=== PATIENT | male | born 1940 | race Caucasian/White ===

== ENCOUNTER 2016-06-01 08:24 | Outpatient (CLI) | payer MEDICARE, BC ==
[~2016-06-01] VITALS: Ht 203.2 cm; Wt 95.5 kg
--- NOTE | ~2016-06-01 | HEMODYNAMI ---
PATIENT:ARMANDO CURRY MEDICAL RECORD: [id number] : 36 LOCATION:[facility] ADMISSION DATE: 06/01/16 Generatedon:06/01/201611:03 Patient name: ARMANDO CURRY Patient #: [id number] SSN: [id number] : 1940 Date of study: 06/01/2016 Page: Of Hemodynamic Procedure Report Patient Data Patient Demographics Procedure consent was obtained First Name: ARMANDO Gender: Male Last Name: ANTOINETTE : 1940 [facility] Initial: R Age: 75 year(s) Patient #: [id number] Race: SSN: [id number] Additional ID: [id number] Contact details Address: [address] [address] State: [place] City: [place] Zip code: [address] Past Medical History History of disease Date Diagnosis Comments CAD Allergies: No known allergies Admission Admission Data Admission Date: 06/01/2016 Admission Time: 8:24 Arrival Date: 06/01/2016 Arrival Time: 10:30 Admit Source: Other Insurance Payor: Medicare Height (in.): 70 BSA: 2.18 (m2) Height (cm.): 177.8 BMI: 31.71 (kg/m2) Weight (lbs.): 221 Weight (kg.): 100.24 Lab Results Lab Result Date: 06/01/2016 Lab Result Time: 0:00 Biochemistry Name Units Result Min Max BUN mg/dl 15 --(--*-)-- 7 18 Creatinine mg/dl 0.9 --(-*--)-- 0.6 1.3 CBC Name Units Result Min Max Hemoglobin g/dl 11.8 *-(----)-- 13.5 17.5 Procedure Procedure Types Cath Procedure Diagnostic Procedure Cardioversion Procedure Description Procedure Date Procedure Date: 06/01/2016 Procedure Start Time: 10:48 Procedure End Time: 11:02 Procedure Staff Name Function Reynold Vital RT Electric Mule Operator Jennifer Dawson RT Scrub Elvin Gunn RT Monitor Manohar Ferrara MD Performing Physician Suzy Perez RN Nurse Procedure Data Cath Procedure Fluoroscopy Diagnostic fluoroscopy Total fluoroscopy Time: 0 time: 0 min min Diagnostic fluoroscopy Total fluoroscopy dose: 0 dose: 0 mGy mGy Contrast Material Contrast Material Type Amount (ml) Isovue 370 0 Estimated blood loss: 5 ml Procedure Complications No complications Procedure Medications Medication Administration Route Dosage Oxygen NC 2 l/min Refer to Anesthesia Notes for Sedation Medications Hemodynamics Rest BSA: 2.18 (m2) HGB: 11.8 (g/dl) O2 Consumption: Estimated: 296.48 (ml/min) O2 Consumption indexed: Estimated:136 (ml/min/m) Pre Cath Intra NCS Post Cath Vital Signs Time Heart Resp SPO2 NIBP (mmHg) Rhythm Pain Sedation Rate (ipm) (%) Status Level (bpm) 10:43:57 88 16 96 138/107(123) A-Fib 0 (11) 10(A) , No pain 10:48:37 98 18 97 101/74(90) NSR 0 (11) 6(A) , No pain 10:53:45 84 18 98 111/73(90) NSR 0 (11) 6(A) , No pain 11:01:03 69 18 99 107/75(94) NSR 0 (11) 9(A) , No pain Medications Time Medication Route Dose Verified Delivered Reason Notes Effectiven ess by by 10:35:48 Oxygen NC 2 Manohar Almonte Per l/min Alem Perez RN physician 10:44:22 Refer to Manohar [place]la for Anesthesia Alem Ferrara MD sedation Notes for Sedation Medications Procedure Log Time Note 10:31:44 Zero performed for pressure channel P1 10:32:28 ACC Patient presents with No angina; no symptoms CCS Anginal Class 1--Ordinary physical activity does not cause angina, angina occurs with strenuos, rapid, or prolonged activity.. 10:32:31 Diagnostic Cath status Elective 10:32:33 Reynold Vital RT(R) sent for patient. Start room use. 10:32:34 Time tracking: Regular hours 10:32:46 Plan of Care:Hemodynamics will remain stable., Cardiac rhythm will remain stable., Comfort level will be maintained., Respiratory function will remain adequate., Patient/ family verbilizes understanding of procedure., Procedure tolerated without complication., Recovers from procedure without complications.. 10:32:55 Patient received from Post Procedure Room to CCL 1 Alert and oriented. Tansferred to table in Supine position. 10:32:56 Warm blankets applied, and raven hugger turned on for patient comfort. 10:32:57 Correct patient and procedure confirmed by team. 10:32:58 Signed procedure consent form obtained from patient. 10:32:59 ECG and BP/O2 sat monitors applied to patient. 10:35:48 Oxygen 2 l/min NC was given by Suzy Perez RN; Per physician; 10:36:14 Arrival Date: 06/01/2016 10:30:00 AM 10:36:19 Admit Source: Other 10:36:26 Insurance Payor : Medicare 10:36:31 Patient Height : 177.8 cm 10:36:33 Patient Weight : 100.24 kg 10:38:38 Lab Result : Hemoglobin 11.8 g/dl 10:38:38 Lab Result : Creatinine 0.9 mg/dl 10:38:38 Lab Result : BUN 15 mg/dl 10:42:48 Vital chart was started 10:43:00 Dr Cano present and monitoring patient for TIVA. 10:43:03 Quick combo pads placed on patients chest and back. 10:43:05 Defibrillator synced and charged to 200 Joules. 10:43:16 Full Disclosure recording started 10:43:30 H&P Date Dictated: 05/27/2016 Within 30 days and on chart., H&P Addendum completed by physician on day of procedure. (MUST COMPLETE FOR ALL OUTPATIENTS). 10:43:31 Pre-procedure instructions explained to patient. 10:43:32 Pre-op teaching completed and patient verbalized understanding. 10:43:33 Family in waiting room. 10:43:34 Patient NPO since Midnight. 10:43:39 Is the patient allergic to Iodine/contrast media? No. 10:43:40 Was the patient premedicated? No 10:43:42 Is patient on blood thinner?Yes 10:43:45 ACC The patient was administered the following blood thiners within the last 24 hours: Eliquis 10:43:57 Patient diabetic? Yes. 10:44:04 If diabetic: On Metformin? Yes 10:44:06 If on Metformin: Last Dose? 06/01/2016 10:44:10 Previous problem with sedation/anesthesia? No ? 10:44:11 Snore? Yes 10:44:12 Sleep apnea? Yes 10:44:13 Deviated septum? No 10:44:14 Opens mouth fully? Yes 10:44:15 Sticks out tongue? Yes 10:44:17 Airway obstruction? No ? 10:44:22 Refer to Anesthesia Notes for Sedation Medications was given by Manohar Ferrara MD; for sedation; 10:44:25 Dentures? Yes in tight 10:44:29 Pre procedure: right dorsailis pedis pulse 1+ Palpable, but thready & weak; easily obliterated 10:44:30 Patient pain scale 0/10 ?. 10:44:35 IV patent on arrival in left hand with 0.9% NaCl at KVO. 10:44:39 Lab results completed and on chart. 10:44:44 Alarms reviewed by R. N. 10:44:44 Mid Chest area was prepped with chlora-prep and draped in sterile fashion 10:44:45 Sharps counted by scrub and verified by R.N. 10:44:46 --------ALL STOP TIME OUT------ 10:44:46 Physician arrived 10:44:47 Final Timeout: patient, procedure, and site verified with staff and physician. All members of the team are in agreement. 10:44:54 Physical assessment completed. ASA score P 2 - A patient with mild systemic disease as per Manohar Ferrara MD. 10:44:57 Sedation plan: TIVA Propofol 10:47:22 Quick Combo opened to sterile field. 10:47:29 Defibrillator synced and charged to 300 Joules. 10:47:30 Procedure started. 10:47:37 Shock delivered. 10:47:48 Patient cardioverted to sinus rhythm . 10:48:55 Procedure ended.(Physican Out) 10:49:14 Fluoroscopy time 00.00 minutes. 10:49:16 Fluoroscopy dose: 0 mGy 10:49:16 Flurop Dose total: 0 10:49:26 Contrast amount:Isovue 370 0ml. 10:49:32 Sharps counted by scrub and verified by R.N. 10:49:39 Post procedure rhythm: sinus rhythm 10:49:50 Estimated blood loss: 5 ml 10:49:53 Patient needs reinforcement of post procedure teaching. 10:49:53 Post procedure instruction explained to patient.Patient verbalizes understanding. 10:50:02 Procedure and supply charges have been captured, reviewed, submitted and are correct. 10:50:07 Procedure Complication : No complications 10:50:09 See physician's report for complete and final results. 10:50:09 Vital chart was stopped 10:50:13 Report given to Post Procedure Room. 10:50:16 Patient transfered to Post Procedure Room with Stretcher. 11:02:01 Full Disclosure recording stopped 11:02:01 Procedure ended. 11:02:06 End room use (Document Last) Device Usage Item Manufacture Quantity Catalog Hospital Part Current Minimal Lot# / Name Number Charge Number Stock Stock Jessica al# Code [employer] [id number] Combo Signature Audit [place] Stage Time Signature Unsigned Intra-Procedure 06/01/2016 Jennifer Dawson 11:03:40 AM RT(R) Signatures Monitor : Elvin Gunn RT Signature : Date : Time : [address] [address]
[~2016-06-01 08:24] MED LIST: ALBUTEROL2.5 MG/3 M INH; BAYER CHEWABLE81 MG PO; BETAPACE 80 MG80 MG PO; GLUCOPHAGE500 MG PO; LIPITOR80 MG PO; LISINOPRIL5 MG PO; MELOXICAM PO; PLAVIX75 MG PO; PREDNISONE10 MG PO; SINGULAIR10 MG PO; TOPROL XL25 MG PO; TOPROL XL50 MG PO; VIBRAMYCIN 100100 MG PO
[2016-06-01 09:22] LABS: BASOPHILS 0.5 % (0.0-2.0); EOSINOPHILS 1.9 % (0-7); HEMATOCRIT 37.3 % (42.0-54.0); HEMOGLOBIN 11.8 g/dL (13.5-17.5); IMMATURE GRANULOCYTES 0.4 % (0-5); LYMPHOCYTES 16.7 % (15-50); MCH 31.2 pg (26.0-34.0); MCHC 31.6 g/dL (31.0-37.0); MCV 98.7 fL (80.0-100.0); MEAN PLATELET VOLUME 9.5 fL (7.4-10.4); MONOCYTES 10.9 % (2-11); NEUTROPHILS 69.6 % (40-80); RBC 3.78 10x6/uL (4.20-6.10); RDW 15.2 % (11.5-14.5); WBC 7.5 10x3/uL (4.8-10.8)
[2016-06-01 09:23] LABS: PLATELET COUNT 187 10x3/uL (130-400)
[2016-06-01] MEDS ORDERED: ELIQUIS2.5 MG PO (09:26)
[2016-06-01 09:34] VITALS: BP 142/83; Ht 203.2 cm; Wt 95.5 kg
[2016-06-01 09:38] LABS: INR 1.69 (0.85-1.17); PROTIME 19.9 SECONDS (11.6-15.0)
[2016-06-01 09:39] LABS: CALC OSMOLALITY 278 mosm/kg (275-300); CALCIUM 8.8 mg/dL (8.5-10.1); CARBON DIOXIDE 28.2 mmol/L (21.0-32.0); CHLORIDE - SERUM 106 mmol/L (98-107); CREATININE - SERUM 0.9 mg/dL (0.6-1.3); GLUCOSE 85 mg/dL (74-106); POTASSIUM - SERUM 3.8 mmol/L (3.5-5.1); SODIUM 140 mmol/L (136-145); UREA NITROGEN 15 mg/dL (7-18); eGFR NON AFRICAN AMERICAN 87 mL/min (90-120)
--- NOTE | 2016-06-01 11:23 | NUR ---
1115 HOB ELEVATED, AWAKE AND TALKING WITH FAMILY AT BEDSIDE. SIPPING SODA AND EATING TURKEY SANDWICH. REMAINS NSR W PVC'S RATE 85.
--- NOTE | 2016-06-01 11:48 | NUR ---
1145 SITTING UP IN BED, ROOM AIR. NSR RATE 82 W PAC/PVC. FAMILY AT SIDE. DENIES NEEDS AT THIS TIME.
--- NOTE | 2016-06-01 13:00 | NUR ---
PIV REMOVED FROM LEFT FORARM WITH BANDAID APPLIED. UP TO BEDSIDE...AMBULATED TO BATHROOM TO VOID. BACK TO BEDSIDE TO DRESS WITH ASSIST FROM .
--- NOTE | 2016-06-01 13:08 | NUR ---
D/C INSTRUCTIONS DISCUSSED WITH PATIENT AND AT BEDSIDE. BOTH VERBALIZED UNDERSTANDING. WHEELED DOWN VIA WHEELCHAIR BY BIT SETTER TEAM.
--- NOTE | 2016-06-04 11:11 | OP ---
PATIENT NAME: ARMANDO CURRY MEDICAL RECORD: [id number] :36 LOCATION:D.CAT ADMISSION DATE: SURGEON: WAYNE NEGRETE MD DATE OF OPERATION: 06/01/2016 PROCEDURE: DC cardioversion. INDICATION: Atrial fibrillation. PROCEDURE INDETAIL: IV conscious sedation was performed per anesthesia. Continuous heart rate, O2 saturation, blood pressure monitoring all undertaken, all of which remains stable. He received 1 shock restoring sinus rhythm. OVERALL IMPRESSION: Successful DC cardioversion from atrial fibrillation to sinus rhythm. TRANSINT:[id number] Voice Confirmation ID: [id number] DOCUMENT ID: [id number] WAYNE NEGRETE MD at 1111 CC: [id number] DICTATION DATE: 06/01/16 1048 MAST MAKER: 06/01/16 1059 DEP CLI 06/01/16 [id number] [place] [address]
== END 2016-06-01 13:09 | disposition home or self-care (01) ==
LOC: D.CATH 08:24
PROVIDERS: Internal Medicine Interventional Cardiology
DX: I48.91 Unspecified atrial fibrillation (principal)

== ENCOUNTER 2016-07-28 09:43 | Outpatient (CLI) | payer MEDICARE, BC ==
[~2016-07-28] VITALS: Ht 177.8 cm; Wt 100.0 kg
--- NOTE | ~2016-07-28 | HEMODYNAMI ---
PATIENT:ARMANDO CURRY MEDICAL RECORD: [id number] : 36 LOCATION:[facility] ADMISSION DATE: 07/28/16 Generatedon:07/28/201612:12 Patient name: ARMANDO CURRY Patient #: [id number] SSN: [id number] : 1940 Date of study: 07/28/2016 Page: Of Hemodynamic Procedure Report Patient Data Patient Demographics Procedure consent was obtained First Name: ARMANDO Gender: Male Last Name: ANTOINETTE : 1940 [facility] Initial: R Age: 75 year(s) Patient #: [id number] Race: SSN: [id number] Additional ID: [id number] Contact details Address: [address] [address] State: [place] City: [place] Zip code: [address] Past Medical History History of disease Date Diagnosis Comments CAD Allergies: No known allergies Admission Admission Data Admission Date: 07/28/2016 Admission Time: 9:43 Lab Results Lab Result Date: 07/28/2016 Lab Result Time: 0:00 CBC Name Units Result Min Max Hemoglobin g/dl 12 *-(----)-- 13.5 17.5 Procedure Procedure Types Cath Procedure Diagnostic Procedure Cardioversion Procedure Description Procedure Date Procedure Date: 07/28/2016 Procedure Start Time: 12:04 Procedure End Time: 12:09 Procedure Staff Name Function Manohar Ferrara MD Performing Physician Jennifer Dawson RT Senior Private Client Advisor Amelia Roy RN Nurse Elvin Gunn RT Monitor Procedure Data Cath Procedure Fluoroscopy Diagnostic fluoroscopy Total fluoroscopy Time: 0 time: 0 min min Diagnostic fluoroscopy Total fluoroscopy dose: 0 dose: 0 mGy mGy Contrast Material Contrast Material Type Amount (ml) Isovue 300 0 Procedure Complications No complications Hemodynamics Rest HGB: 12 (g/dl) Heart Rate: 0 (bpm) Snapshots Pre Cath Intra NCS Post Cath Vital Signs Time Heart Resp SPO2 NIBP (mmHg) Rhythm Pain Sedation Rate (ipm) (%) Status Level (bpm) 11:53:28 61 17 94 161/86(128) NSR 0 (11) 10(A) , No pain 11:57:53 61 16 98 146/84(127) NSR 0 (11) 10(A) , No pain 12:02:17 60 19 98 148/77(130) NSR 0 (11) 10(A) , No pain 12:06:33 84 21 81 112/65(89) NSR 0 (11) 10(A) , No pain Procedure Log Time Note 11:30:01 Elvin Gunn RT(R) sent for patient. Start room use. 11:30:56 ACC Patient presents with Non-STEMI CCS Anginal Class 2--Slight limitation of ordinary activity. 11:31:00 Diagnostic Cath status Elective 11:31:10 Time tracking: Regular hours 11:31:14 Plan of Care:Hemodynamics will remain stable., Cardiac rhythm will remain stable., Comfort level will be maintained., Respiratory function will remain adequate., Patient/ family verbilizes understanding of procedure., Procedure tolerated without complication., Recovers from procedure without complications.. 11:50:58 Zero performed for pressure channel P1 11:51:08 Zero performed for pressure channel P1 11:52:07 Patient received from Pre/Post Procedure Room to [facility] 3 Alert and oriented. Tansferred to table in Supine position. 11:52:08 Warm blankets applied, and raven hugger turned on for patient comfort. 11:52:08 Correct patient and procedure confirmed by team. 11:52:09 Signed procedure consent form obtained from patient. 11:52:10 ECG and BP/O2 sat monitors applied to patient. 11:52:10 Vital chart was started 11:52:11 Baseline sample Acquired. 11:52:17 Rhythm: atrial fibrillation 11:52:18 Full Disclosure recording started 11:56:45 H&P Date Dictated: 07/26/2016 Within 30 days and on chart., H&P Addendum completed by physician on day of procedure. (MUST COMPLETE FOR ALL OUTPATIENTS). 11:56:47 Pre-procedure instructions explained to patient. 11:56:47 Pre-op teaching completed and patient verbalized understanding. 11:56:49 Family in waiting room. 11:56:51 Patient NPO since Midnight. 11:57:03 Patient allergic to No known allergies 11:57:05 Is the patient allergic to Iodine/contrast media? No. 11:57:10 Is patient on blood thinner?Yes 11:57:26 ACC The patient was administered the following blood thiners within the last 24 hours: Eliquis 11:57:28 Patient diabetic? Yes. 11:57:33 ----Pre-sedation anethsthesia assessment.---- 11:57:35 Previous problem with sedation/anesthesia? No ? 11:57:36 Snore? Yes 11:57:38 Sleep apnea? Yes 11:57:39 Deviated septum? No 11:57:41 Opens mouth fully? Yes 11:57:43 Sticks out tongue? Yes 11:57:45 Airway obstruction? No ? 11:57:47 Dentures? No ? 11:58:46 IV patent on arrival in left hand with 0.9% NaCl at 10ml/hr. 11:59:07 Lab Result : Hemoglobin 12 g/dl 11:59:09 Lab results completed and on chart. 11:59:18 Alarms reviewed by R. N. 11:59:19 Sharps counted by scrub and verified by RKyawN. 11:59:38 DR. PEGUERO present and monitoring patient for TIVA. 11:59:41 Quick combo pads placed on patients chest and back. 12:00:19 Quick Combo opened to sterile field. 12:01:21 Baseline sample Acquired. 12:04:30 --------ALL STOP TIME OUT------ 12:04:31 Final Timeout: patient, procedure, and site verified with staff and physician. All members of the team are in agreement. 12:04:33 Mid Chest site verified by team. 12:04:36 Physical assessment completed. ASA score P 2 - A patient with mild systemic disease as per Manohar Ferrara MD. 12:04:40 Sedation plan: TIVA Propofol 12:04:53 Procedure started. 12:05:02 ------Cardioversion------ 12:05:09 Defibrillator synced and charged to 300 Joules. 12:05:16 Shock delivered. 12:06:25 Patient cardioverted to sinus rhythm . 12:06:32 Procedure ended.(Physican Out) 12:06:58 Fluoroscopy time 00.00 minutes. 12:07:00 Flurop Dose total: 0 12:07:00 Fluoroscopy dose: 0 mGy 12:07:02 Contrast amount:Isovue 300 0ml. 12:07:03 Sharps counted by scrub and verified by R.N. 12:07:03 Insertion/operative site no bleeding no hematoma. 12:07:12 Post procedure rhythm: sinus rhythm 12:07:13 Post procedure instruction explained to patient.Patient verbalizes understanding. 12:07:14 Procedure and supply charges have been captured, reviewed, submitted and are correct. 12:07:30 Procedure Complication : No complications 12:08:18 Vital chart was stopped 12:08:18 See physician's report for complete and final results. 12:08:20 Report given to Pre/Post Procedure Room. 12:09:01 Patient transfered to Pre/Post Procedure Room with Bed. 12:09:04 Procedure ended. 12:09:04 Full Disclosure recording stopped 12:09:11 End room use (Document Last) Device Usage Item Manufacture Quantity Catalog Hospital Part Current Minimal Lot# / Name Number Charge Number [facility]# Code [facility] [employer] [id number] Combo Signature Audit [place] Stage Time Signature Unsigned Intra-Procedure 07/28/2016 Elvin Gunn 12:12:46 PM RT(R) Signatures Monitor : Elvin Gunn RT Signature : Date : Time : [id number] [place] [address]
[~2016-07-28 09:43] MED LIST changes: +ELIQUIS2.5 MG PO
[2016-07-28 10:20] VITALS: BP 157/78; Ht 177.8 cm; Wt 100.0 kg
[2016-07-28 11:00] LABS: BASOPHILS 0.2 % (0.0-2.0); EOSINOPHILS 0.6 % (0-7); HEMATOCRIT 38.9 % (42.0-54.0); IMMATURE GRANULOCYTES 0.4 % (0-5); LYMPHOCYTES 12.2 % (15-50); MCH 31.2 pg (26.0-34.0); MCHC 30.8 g/dL (31.0-37.0); NEUTROPHILS 74.6 % (40-80); PLATELET COUNT 206 10x3/uL (130-400); RBC 3.85 10x6/uL (4.20-6.10); RDW 14.8 % (11.5-14.5); WBC 8.5 10x3/uL (4.8-10.8)
[2016-07-28 11:08] LABS: INR 1.74 (0.85-1.17); PROTIME 20.3 SECONDS (11.6-15.0)
[2016-07-28 11:12] LABS: CALC OSMOLALITY 282 mosm/kg (275-300); CALCIUM 8.9 mg/dL (8.5-10.1); CARBON DIOXIDE 34.6 mmol/L (21.0-32.0); CHLORIDE - SERUM 103 mmol/L (98-107); CREATININE - SERUM 0.9 mg/dL (0.6-1.3); GLUCOSE 92 mg/dL (74-106); SODIUM 141 mmol/L (136-145); UREA NITROGEN 17 mg/dL (7-18); eGFR NON AFRICAN AMERICAN 87 mL/min (90-120)
[2016-07-28 11:14] LABS: POTASSIUM - SERUM 4.6 mmol/L (3.5-5.1)
--- NOTE | 2016-07-28 12:31 | NUR ---
1220 RECEIVED PT FROM PERSONAL LINES ACCOUNT EXECUTIVE. PT IS DROWSY. DENIES ANY C/O PAIN OR NAUSEA. CARDIOVERSION PAD SITES WITH SLIGHT REDNESS. PT DENIES PAIN AT SITES. FAMILY AT BEDSIDE. PO FLUIDS AND SANDWICH SERVED. CALL LIGHT IN REACH.
--- NOTE | 2016-07-28 12:59 | NUR ---
1235 PT DENEIS ANY C/O. RR EVEN AND UNLABORED, TOLERATING SANDWICH WITH NO C/O. FAMILY AT BEDSIDE. CALL LIGHT IN REACH.
--- NOTE | 2016-07-28 13:11 | NUR ---
PIV REMOVED FROM LEFT ARM WITH DRESSING APPLIED. CHEST PAIN IS DENIED PATIENT UP TO GET DRESSED FOR DISCHARGE HOME
--- NOTE | 2016-07-28 13:20 | NUR ---
2690 DISCHARGE INSTURCTIONS GONE OVER WITH PATIENT AND BOTH VERBALIZED UNDERSTANDING LEFT VIA WC TO PARKING FOR TRANSPORT HOME
--- NOTE | 2016-08-02 10:08 | OP ---
PATIENT NAME: ARMANDO CURRY MEDICAL RECORD: [id number] :36 LOCATION:D.CAT ADMISSION DATE: SURGEON: WAYNE NEGRETE MD DATE OF OPERATION: 07/28/2016 PROCEDURE: DC Cardioversion. INDICATION: Atrial fibrillation. DESCRIPTION OF PROCEDURE: IV conscious sedation was performed per anesthesia. Continuous heart rate and O2 saturation monitoring were all undertaken, all of which remains stable. He received 1 shock synchronized at 300 joules restoring sinus rhythm. OVERALL IMPRESSION: Successful DC cardioversion from atrial fibrillation to sinus rhythm. TRANSINT:[id number] Voice Confirmation ID: [id number] DOCUMENT ID: [id number] WAYNE NEGRETE MD at 1008 CC: [id number] DICTATION DATE: 07/28/16 120 [employer] L[employer] OFFICER: 07/28/162027 DEP CLI 07/28/16 [id number] [place] [address]
== END 2016-07-28 13:57 | disposition home or self-care (01) ==
LOC: D.CATH 09:43
PROVIDERS: Internal Medicine Interventional Cardiology
DX: I48.91 Unspecified atrial fibrillation (principal)

== ENCOUNTER 2016-12-10 09:57 | Outpatient (CLI) | payer MEDICARE, BC ==
[~2016-12-10] VITALS: Ht 175.3 cm; Wt 93.2 kg
--- NOTE | ~2016-12-10 | HEMODYNAMI ---
PATIENT:AMRANDO CURRY MEDICAL RECORD: [id number] : 36 LOCATION:[facility] ADMISSION DATE: 12/10/16 Generatedon:12/10/201613:27 Patient name: ARMANDO CURRY Patient #: [id number] SSN: [id number] : 1940 Date of study: 12/10/2016 Page: Of Hemodynamic Procedure Report Patient Data Patient Demographics Procedure consent was obtained First Name: ARMANDO Gender: Male Last Name: ANTOINETTE : 1940 [facility] Initial: R Age: 76 year(s) Patient #: [id number] Race: SSN: [id number] Additional ID: [id number] Contact details Address: [place] [address] State: [place] City: [place] Zip code: [address] Past Medical History History of disease Date Diagnosis Comments CAD Allergies: No known allergies Admission Admission Data Admission Date: 12/10/2016 Admission Time: 9:57 Procedure Procedure Types Cath Procedure Diagnostic Procedure LHC LHC w/Coronaries w/Grafts Cardioversion Procedure Description Procedure Date Procedure Date: 12/10/2016 Procedure Start Time: 13:04 Procedure Staff Name Function Manohar Ferrara MD Performing Physician Elvin Gunn RT Scrub Champ Clifford RN Nurse Ron Orlando RT Monitor Cleve Cortes MD Additional personnel Procedure Data Cath Procedure Fluoroscopy Diagnostic fluoroscopy Total fluoroscopy Time: 3.8 time: 3.8 min min Diagnostic fluoroscopy Total fluoroscopy dose: dose: 277.67 mGy 277.67 mGy Contrast Material Contrast Material Type Amount (ml) Isovue 300 73 Entry Location Entry Primary Successful Side Size Upsize Upsize Entry Closure Succes sful Closure Location (Fr) 1 (Fr) 2 (Fr) Remarks Device Remarks Femoral Right 5 Fr Exoseal artery Diagnostic catheters Device Type Used For End Catheter Placement Cordis 5Fr Pigtail LV Angiography Catheter (MP) Cordis 5Fr JL 4.0 Left Coronary Catheter (MP) Angiography Cordis 5Fr 3DRC Catheter Right Coronary (MP) Angiography Diagnostic Infinity 5Fr SVG Angiography AR MOD Catheter Procedure Medications Medication Administration Route Dosage Oxygen NC l/min Heparin Flush Bag added to field 2 bags (1000units/500ml NS) 0.9% NaCl I.V. 100 ml/hr Refer to Anesthesia Notes for Sedation Medications Hemodynamics Rest Heart Rate: 61 (bpm) Snapshots Pre Cath Intra NCS Post Cath Vital Signs Time Heart Resp SPO2 NIBP (mmHg) Rhythm Pain Sedation Rate (ipm) (%) Status Level (bpm) 12:49:02 68 16 99 168/88(134) NSR 0 (11) 10(A) , No pain 12:53:28 60 18 100 166/88(104) NSR 0 (11) 10(A) , No pain 12:57:55 58 24 96 163/86(148) NSR 0 (11) 10(A) , No pain 13:02:13 58 19 95 130/83(97) NSR 0 (11) 9(A) , No pain 13:06:27 81 21 93 119/80(111) NSR 0 (11) 9(A) , No pain 13:10:35 80 19 93 126/83(97) NSR 0 (11) 9(A) , No pain 13:14:47 79 18 95 129/79(96) NSR 0 (11) 9(A) , No pain 13:18:56 83 18 98 142/87(121) NSR 0 (11) 9(A) , No pain 13:23:10 115 17 96 140/88(111) NSR 0 (11) 9(A) , No pain Medications Time Medication Route Dose Verified Delivered Reason Notes Effec tiveness by by 12:54:47 Oxygen NC l/min Champ Oakes Per Darrin Clifford RN physician RN 12:55:01 Heparin Flush added 2 Champ Oakes used for Bag to bags Darrin Clifford RN procedure (1000units/500ml field RN NS) 12:55:15 0.9% NaCl I.V. 100 Champ Oakes Per ml/hr Darrin Clifford RN physician RN 12:55:33 Refer to Champ Oakes for Anesthesia Notes Darrin Clifford RN sedation for Sedation RN Medications Procedure Log Time Note 12:25:37 Champ Clifford RN sent for patient. Start room use. 12:31:33 ACC Patient presents with Stable Angina CCS Anginal Class 2--Slight limitation of ordinary activity. 12:31:35 Diagnostic Cath status Elective 12:31:38 Time tracking: Regular hours 12:31:42 Plan of Care:Hemodynamics will remain stable., Cardiac rhythm will remain stable., Comfort level will be maintained., Respiratory function will remain adequate., Patient/ family verbilizes understanding of procedure., Procedure tolerated without complication., Recovers from procedure without complications.. 12:39:07 Patient received from Pre/Post Procedure Room to [facility] 3 Alert and oriented. Tansferred to table in Supine position. 12:39:09 Warm blankets applied, and raven hugger turned on for patient comfort. 12:39:10 Correct patient and procedure confirmed by team. 12:39:13 Signed procedure consent form obtained from patient. 12:39:19 Full Disclosure recording started 12:39:20 - 12:39:26 H&P Date Dictated: 12/10/2016 H&P Addendum completed by physician on day of procedure. (MUST COMPLETE FOR ALL OUTPATIENTS). 12:39:46 Pre-procedure instructions explained to patient. 12:39:46 Pre-op teaching completed and patient verbalized understanding. 12:39:48 Family in waiting room. 12:39:50 Patient NPO since Midnight. 12:39:57 Use device set Femoral Dx 12:39:58 Acist Syringe opened to sterile field. 12:39:59 Bag Decanter opened to sterile field. 12:39:59 Medline Cath Pack opened to sterile field. 12:39:59 Terumo 5Fr [place] Sheath opened to sterile field. 12:40:00 St Adolfo 260cm J .035 wire opened to sterile field. 12:40:01 Acist Hand Control opened to sterile field. 12:40:02 Acist Manifold opened to sterile field. 12:40:02 Diagnostic Infinity 5Fr Multipack catheter opened to sterile field. 12:40:03 Tegaderm 4 x 4 opened to sterile field. 12:40:18 Is the patient allergic to Iodine/contrast media? No. 12:44:14 Quick Combo opened to sterile field. 12:45:23 present and monitoring patient for TIVA. 12:46:02 Quick combo pads placed on patients chest and back. 12:46:26 Is patient on blood thinner?No 12:46:28 Patient diabetic? Yes. 12:46:29 If diabetic: On Metformin? Yes 12:46:33 If on Metformin: Last Dose? 12/08/2016 12:46:35 - 12:46:35 ----Pre-sedation anethsthesia assessment.---- 12:46:38 Previous problem with sedation/anesthesia? No ? 12:46:39 Snore? Yes 12:46:40 Sleep apnea? No 12:46:41 Deviated septum? No 12:46:52 Opens mouth fully? Yes 12:46:53 Sticks out tongue? Yes 12:46:55 Airway obstruction? No ? 12:47:01 - 12:47:04 Pre procedure: right dorsailis pedis pulse Doppler 12:47:11 Patient pain scale 0/10 no pain. 12:47:16 ECG and BP/O2 sat monitors applied to patient. 12:47:17 Vital chart was started 12:47:18 Baseline sample Acquired. 12:47:26 Rhythm: atrial flutter 12:47:33 Sharps counted by scrub and verified by R.N. 12:47:33 Alarms reviewed by R. NKyaw 12:47:42 Right groin area was prepped with chlora-prep and draped in sterile fashion 12:47:46 IV patent on arrival in left forearm with 0.9% NaCl at [facility]. 12:54:47 Oxygen l/min NC was administered by Champ Clifford RN; Per physician; 12:55:01 Heparin Flush Bag (1000units/500ml NS) 2 bags added to field was administered by Champ Clifford RN; used for procedure; 12:55:15 0.9% NaCl 100 ml/hr I.V. was administered by Champ Clifford RN; Per physician; 12:55:33 Refer to Anesthesia Notes for Sedation Medications was administered by Champ Clifford RN; for sedation; 12:56:44 Zero performed for pressure channel P1 12:56:47 Zero performed for pressure channel P1 12:56:53 Zero performed for pressure channel P1 12:58:00 Zero performed for pressure channel P1 12:58:12 Zero performed for pressure channel P1 13:02:06 Physician arrived 13:02:06 --------ALL STOP TIME OUT------ 13:02:07 Final Timeout: patient, procedure, and site verified with staff and physician. All members of the team are in agreement. 13:02:09 Right groin site verified by team. 13:02:28 Physical assessment completed. ASA score P 4 - A patient with severe systemic disease that is a constant threat to life as per Cleve Cortes MD. 13:02:42 Sedation plan: IV Moderate Sedation Propofol 13:02:50 Procedure started. 13:03:03 Defibrillator synced and charged to 200 Joules. 13:03:10 Shock delivered. 13:03:55 Patient cardioverted to sinus rhythm . 13:04:52 Local anesthetic to right femoral artery with Lidocaine 2% by Manohar Ferrara MD.INITIAL ACCESS ONLY 13:05:01 A 5 Fr sheath was inserted into the Right Femoral artery 13:12:05 A Cordis 5Fr Pigtail Catheter (MP) was advanced over the wire and used for LV Angiography. 13:12:10 LV angiography performed. 13:13:36 A Cordis 5Fr JL 4.0 Catheter (MP) was advanced over the wire and used for Left Coronary Angiography. 13:14:22 LCA angiography performed. 13:15:32 A Cordis 5Fr 3DRC Catheter (MP) was advanced over the wire and used for Right Coronary Angiography. 13:15:42 MADRIGAL to LAD angiography performed. 13:16:11 A Diagnostic Infinity 5Fr AR MOD Catheter was advanced over the wire an d used for SVG Angiography. 13:16:23 Procedure type changed to Cath procedure, Diagnostic procedure, LHC, LH C w/Coronaries w/Grafts, Cardioversion 13:16:48 SVG to RCA angiography performed. 13:17:02 SVG to Circ angiography performed. 13:18:05 Sheath removed intact; hemostasis achieved with Exoseal to the Right Femoral artery. 13:18:08 Procedure ended.(Physican Out) 13:18:33 Fluoroscopy time 03.80 minutes. 13:18:41 Fluoroscopy dose: 277.67 mGy 13:18:41 Flurop Dose total: 277.67 13:18:47 Contrast amount:Isovue 300 73ml. 13:18:48 Sharps counted by scrub and verified by R.N. 13:18:49 Insertion/operative site no bleeding no hematoma. 13:18:54 Post-op/insertion site Right Femoral artery dressed using a 4 x 4 and Tegaderm. 13:20:15 Vascade 5Fr Closure Device opened to sterile field. 13:20:17 Post Procedure Pulses reassessed and unchanged 13:20:21 Post right femoral artery:stable 13:20:30 Post-procedure physical assessment completed. ASA score P 4 - A patient with severe systemic disease that is a constant threat to life as per Manohar Ferrara MD. 13:20:32 Post procedure rhythm: sinus rhythm 13:20:34 Post procedure instruction explained to patient.Patient verbalizes understanding. 13:20:35 Procedure and supply charges have been captured, reviewed, submitted an d are correct. 13:26:30 Report given to Pre/Post Procedure Room. 13:26:33 Patient transfered to Pre/Post Procedure Room with Stretcher. 13:27:01 Vital chart was stopped Device Usage Item Name Manufacture Quantity Catalog Number Hospital Part Current [facility] l Lot# / Serial# Charge Number Stock Stock Code Mike Mckeon 1 [id number] 168830 044033 20 Syringe Medical BioCatch Inc Bag Microtek 1 2002S 073144 71322 519544 5 [employer] Inc. Medline Cardinal 1 [id number] [id number] 73426 354622 5 AllofMe Terumo 5Fr Terumo 1 [id number] 465557 892402 797226 [address] Ad[address]fo St Adolfo 1 548649 392798 983758 283235 30 260cm J .035 wire Acist Hand Acist 1 70334 741819 142547 713644 5 Control Medical Systems Inc Acist Acist 1 17469 666318 674281 638810 5 Manifold Medical Systems Inc Diagnostic Cardinal 1 [id number] 195520 36722 316113 30 Infinity Health 5Fr Multipack catheter Tegaderm 4 3M 1 1626W 441341 088208 819933 5 x 4 Quick QRxPharma Systems 1 66049-150248 001114 217908 434433 5 Combo Cordis 5Fr Cardinal 1 951617 5 Pigtail Health Catheter (MP) Cordis 5Fr Cardinal 1 [id number] 5 JL 4.0 Health Catheter (MP) Cordis 5Fr Cardinal 1 657244 5 3DRC Health Catheter (MP) Diagnostic Cardinal 1 [id number] 078423 876514 177025 15 StormPinsity Health 5Fr AR MOD Catheter Vascade Cardiva 1 [id number] 365168 18706 192228 10 [id number] 5Fr Medical, Closure Inc. Device Signature Audit Trion Stage Time Signature Unsigned Intra-Procedure 12/10/2016 oRn 1:26:57 PM Shuffield RT (R) (CV) Signatures Monitor : Ron Signature : Shuffield RT Date : Time : [facility] [address] [place] [address]
[2016-12-10 11:38] LABS: INR 1.38 (0.85-1.17); PROTIME 16.9 SECONDS (11.6-15.0)
[2016-12-10 11:43] LABS: CALC OSMOLALITY 283 mosm/kg (275-300); CALCIUM 8.9 mg/dL (8.5-10.1); CHLORIDE - SERUM 105 mmol/L (98-107); CREATININE - SERUM 0.8 mg/dL (0.6-1.3); GLUCOSE 85 mg/dL (74-106); SODIUM 142 mmol/L (136-145); UREA NITROGEN 17 mg/dL (7-18); eGFR NON AFRICAN AMERICAN > 90 mL/min (90-120)
[2016-12-10 11:44] VITALS: BP 163/74; Ht 175.3 cm; Wt 93.2 kg
[2016-12-10 11:45] LABS: BASOPHILS 0.3 % (0-2); EOSINOPHILS 1.9 % (0-7); HEMATOCRIT 39.6 % (42.0-54.0); HEMOGLOBIN 12.7 g/dL (13.5-17.5); IMMATURE GRANULOCYTES 0.4 % (0-5); LYMPHOCYTES 12.3 % (15-50); MCH 31.8 pg (26.0-34.0); MCHC 32.1 g/dL (31.0-37.0); MCV 99.2 fL (80.0-100.0); MEAN PLATELET VOLUME 9.5 fL (7.4-10.4); MONOCYTES 12.1 % (2-11); PLATELET COUNT 220 10x3/uL (130-400); RBC 3.99 10x6/uL (4.20-6.10); RDW 13.9 % (11.5-14.5); WBC 10.5 10x3/uL (4.8-10.8)
--- NOTE | 2016-12-10 13:42 | NUR ---
RECIEVED TO ROOM VIA STRETCHER FROM MEASUREMENT SUPERINTENDENT WITH REPORTS OF A CLEAN CATH AND CARDIOVERSION BY ONE SHOCK AT 200. 5 FR EXOSEAL R/GROIN CDI NO BLEEDING NO HEMATOMA NOTED. NSR RATE 80
--- NOTE | 2016-12-10 14:17 | NUR ---
DR NEGRETE AT BEDSIDE TALKING TO AND PATIENT. VSS WITH CHEST PAIN DENIED. 5 FR EXOSEAL R/GROIN CDI NO BLEEDING NO HEMATOMA NOTED
--- NOTE | 2016-12-10 14:30 | NUR ---
R/GROIN REMAINS CDI NO BLEEDING NO HEMATOMA NOTED. VSS WITH CHEST PAIN DENIED
--- NOTE | 2016-12-10 14:42 | NUR ---
5 FR EXOSEAL R/GROIN CDI NO BLEEDING NO HEMATOMA NOTED. VSS WITH CHEST PAIN DENIED
--- NOTE | 2016-12-10 14:59 | NUR ---
REPOSITIONED TO SITTING WITH HOB UP 30 DEGREES PATIENT DENIED CHEST PAIN WITH NSR RATE 82. 5 FR EXOSEAL R/GROIN CDI NO BLEEDING NO HEMATOMA NOTED.
--- NOTE | 2016-12-10 15:41 | NUR ---
RHYTHM CHANGE OF CAF AT 84 CHEST PAIN DENIED. PIV REMOVED FROM L/ARM WITH DRESSING APPLIED. 5 FR EXOSEAL R/GROIN CDI NO BLEEDING NO HEMATOMA NOTED. PATIENT UP TO GET DRESSED FOR DISCHARGE HOME
--- NOTE | 2016-12-10 15:48 | NUR ---
VERBAL AND WRITTEN DISCHARGE GONE OVER WITH PATIENT AND BOTH VERBALIZED UNDERSTANDING. LEFT VIA WC TO PARKING FOR TO DRIVE HOME
--- NOTE | 2016-12-15 13:54 | OP ---
PATIENT NAME: ARMANDO CURRY MEDICAL RECORD: [id number] :38 LOCATION:D.CAT ADMISSION DATE: SURGEON: WAYNE NEGRETE MD OPERATION DATE: 12/10/16 DATE OF OPERATION: 12/10/2016 PROCEDURES: 1. DC cardioversion. 2. Left heart catheterization. 3. Selective coronary angiography. 4. Vein graft angiography. 5. MADRIAGL angiography. 6. Left ventriculogram. INDICATION: Angina, coronary artery disease and atrial fibrillation. DESCRIPTION OF PROCEDURE: After informed consent was obtained and after detailed explanation of risks, benefits as well as alternative therapies, the patient elected to proceed with angiogram and cardioversion. The right femoral area was prepped and draped in normal sterile fashion. The right femoral artery was cannulated via modified Seldinger technique with placement of 5-Sami sheath. All catheters exchanged through this sheath. IV conscious sedation was performed per anesthesia. Continuous heart rate, O2 saturation, blood pressure monitoring all undertaken, all of which remained stable. FINDINGS: Left ventriculogram was performed in standard 30-degree PALACIOS view, reveals good cardiac wall motion throughout all segments. Overall ejection fraction is 60%. SELECTIVE CORONARY ANGIOGRAPHY: 1. Left main showed no significant angiographic disease. 2. Left anterior descending is totally occluded. 3. Left circumflex is totally occluded. 4. Right coronary is totally occluded. 5. MADRIGAL to the LAD is widely patent. Distal LAD is widely patent. 6. Vein graft to the circumflex is widely patent. Distal circumflex is widely patent. 7. Vein graft to the right coronary is patent. Distal right coronary is widely patent. 8. The patient received 1 shock at 200 joules restoring sinus rhythm. OVERALL IMPRESSION: Successful DC cardioversion from atrial fibrillation to sinus rhythm. No new coronary artery disease is present with wide patency of all grafts. Continue medical management of the atrial fibrillation and coronary artery disease. TRANSINT:[id number] Voice Confirmation ID: [id number] DOCUMENT ID: [id number] OPERATIVE REPORT [id number] ANTOINETTEARMANDO JEFFREY MD at 1354 CC: [id number] DICTATION DATE: 12/10/16 1325 TRAVEL TICKETING REVIEWER: 12/10/16 2041 DEP CLI 12/10/16 [place] [id number]
== END 2016-12-10 15:50 | disposition home or self-care (01) ==
LOC: D.CATH 09:57
PROVIDERS: Internal Medicine Interventional Cardiology
DX: I25.119 Atherosclerotic heart disease of native coronary artery with unspecified angina pectoris (principal); Z95.1 Presence of aortocoronary bypass graft; I48.91 Unspecified atrial fibrillation; Z01.812 Encounter for preprocedural laboratory examination

== ENCOUNTER 2017-01-31 17:45 | Inpatient (IN) | payer MEDICARE, BC ==
--- NOTE | 2017-01-31 17:27 | NUR ---
RECEIVED PT TO ROOM 213, VIA STRETCHER. PT SAT 90% ON 4L NAD NOTED AT THIS TIME. ORIENTED PT TO ROOM AND CALL LIGHT. AT BEDSIDE, WILL ASSESS PT, WAIT FOR ORDERS AND START PLAN OF CARE.
[2017-01-31] MEDS ORDERED: BETAPACE 120 M120 MG PO (18:01)
[2017-01-31 18:28] LABS: BASOPHILS 0.1 % (0-2); EOSINOPHILS 0.6 % (0-7); HEMATOCRIT 40.1 % (42.0-54.0); HEMOGLOBIN 12.7 g/dL (13.5-17.5); IMMATURE GRANULOCYTES 0.4 % (0-5); LYMPHOCYTES 3.7 % (15-50); MCHC 31.7 g/dL (31.0-37.0); MEAN PLATELET VOLUME 9.3 fL (7.4-10.4); MONOCYTES 6.7 % (2-11); NEUTROPHILS 88.5 % (40-80); PLATELET COUNT 201 10x3/uL (130-400); RBC 3.97 10x6/uL (4.20-6.10); RDW 14.7 % (11.5-14.5); WBC 15.1 10x3/uL (4.8-10.8)
[2017-01-31 19:00] VITALS: BP 170/98
[2017-01-31 19:06] LABS: CKMB 0.4 U/L (0.0-3.6); CREATINE KINASE 32 UL (21-232); TROPONIN-I < 0.017 ng/mL (0.000-0.060)
[2017-01-31 19:32] LABS: ALBUMIN 3.5 g/dL (3.4-5.0); ALKALINE PHOSPHATASE 72 U/L (46-116); ALT (SGPT) 28 U/L (10-68); CALC OSMOLALITY 290 mosm/kg (275-300); CALCIUM 9.1 mg/dL (8.5-10.1); CARBON DIOXIDE 27.8 mmol/L (21.0-32.0); CHLORIDE - SERUM 104 mmol/L (98-107); CREATININE - SERUM 0.8 mg/dL (0.6-1.3); POTASSIUM - SERUM 4.5 mmol/L (3.5-5.1); PROTEIN - SERUM 6.8 g/dL (6.4-8.2); SODIUM 143 mmol/L (136-145); UREA NITROGEN 24 mg/dL (7-18); eGFR NON AFRICAN AMERICAN > 90 mL/min (90-120)
[2017-01-31 19:33] LABS: GLUCOSE 137 mg/dL (74-106)
[2017-01-31 19:34] LABS: PHOSPHOROUS 3.8 mg/dL (2.5-4.9); THYROID STIMULATING HORMONE 0.59 uIU/mL (0.36-3.74)
--- NOTE | 2017-01-31 20:00 | NUR ---
PT SITTING ON SIDE OF BED. HE IS KEEPING HIS HEAD HANGING DOWN AND SPEECH IS MUMBLY AND DIFFICULT TO UNDERSTAND. FLUTTER ON TELEMETRY. O2 4L/NC WITH NONLABORED RESPIRATIONS. PITTING 3+ EDEMA TO BILATERAL LOWER EXTREMITIES. IVF INFUSING TO RIGHT WRIST/HAND. ORDER PER DR MOORE FOR NO SCDS, ORDER WRITTEN PER DR DUBOIS FOR KYE HOSE. NO KYE HOSE APPLIED AT THIS TIME SINCE PT HAS BEEN DIAGNOSED WITH DVT TO RIGHT POPLITEAL LOWER LEG VEIN. AT BEDSIDE. SHE IS VERY CONCERNED OVER THE CHANGES SHE IS SEEING IN PATIENTS'S BEHAVIORS. SEE SHIFT ASSESSMENT. CPOC.
--- NOTE | 2017-01-31 20:28 | NUR ---
CALL FROM LAB WITH PT HAVING ELEVATED D-DIMER >20. CALL FROM DR MUNA DAVIS RADIOLOGY REGARDING US DOPPLER DONE TO LOWER LEGS, SHOWS PARTIAL OCCLUSIVE THROMBUS TO RIGHT POPLITEAL VEIN.. PAGE TO BRENDON.
--- NOTE | 2017-01-31 20:33 | NUR ---
RETURN CALL FROM BRENDON, REVIEWED US RESULTS AND D-DIMER RESULTS. BRENDON CARRILLO SAID TO NOTIFY DR MOORE FOR RECCOMENDATIONS.
--- NOTE | 2017-01-31 20:42 | NUR ---
RETURN CALL FROM DR VARELA, REVIEWED PT STATUS/CURRENT LABS/HE WAS CALLED BY DR DAVIS AND GIVEN THE REPORT OF THE RIGHT LEG POPLITEAL DVT. AT THIS TIME, HE WOULD LIKE ALL INFORMATION REPORTED TO DR TERESA SINGH.
--- NOTE | 2017-01-31 21:50 | NUR ---
RETURN CALL FROM DR MOORE AND NEW ORDERS RECIEVED TO HOLD ELIQUIS AND START PT ON LOVENOX 1MG/KG EVERY 12 HOURS. PT WEIGHS [phone] SQ OF LOVENOX TO BE INITIATED.
--- NOTE | 2017-01-31 23:00 | NUR ---
PT FINALLY AGREED TO LET STAFF HELP HIM LAY BACK IN BED AND ELEVATE HIS LEGS ON PILLOWS SINCE THEY ARE SO EDEMATOUS. PT CONTINUES TO MUMBLE AND PULL AT HIS GOWN AND SPEAK SOFTLY. IS VERY CONCERNED SAYING THIS IS JUST NOT HIS NORMAL BEHAVIOR. WILL MONITOR. PT HAS BEEN ASSESSED BY DR MOORE AND DR VARELA WILL SEE HIM IN THE AM.
[2017-02-01] VITALS (7 sets, daily range): BP systolic 134–170; BP diastolic 82–101; BMI 33.1
[2017-02-01 01:10] LABS: CKMB 0.4 U/L (0.0-3.6); CREATINE KINASE 27 UL (21-232); TROPONIN-I < 0.017 ng/mL (0.000-0.060)
--- NOTE | 2017-02-01 06:08 | NUR ---
PT UNCHANGED. PULLING AT HIS GOWN, MUMBLING. KEEPING HIS VERY CONCERNED ABOUT THIS CHANGE IN MENTATION.
[2017-02-01 07:02] LABS: BASOPHILS 0 % (0-2); EOSINOPHILS 0 % (0-7); HEMATOCRIT 40.7 % (42.0-54.0); HEMOGLOBIN 12.7 g/dL (13.5-17.5); IMMATURE GRANULOCYTES 0.3 % (0-5); LYMPHOCYTES 7.4 % (15-50); MCH 31.1 pg (26.0-34.0); MCHC 31.2 g/dL (31.0-37.0); MCV 99.8 fL (80.0-100.0); MEAN PLATELET VOLUME 9.7 fL (7.4-10.4); MONOCYTES 9.4 % (2-11); NEUTROPHILS 82.9 % (40-80); PLATELET COUNT 232 10x3/uL (130-400); RBC 4.08 10x6/uL (4.20-6.10); RDW 14.7 % (11.5-14.5)
[2017-02-01 07:07] LABS: WBC 10.1 10x3/uL (4.8-10.8)
[2017-02-01 07:11] LABS: CALC OSMOLALITY 287 mosm/kg (275-300); CALCIUM 8.9 mg/dL (8.5-10.1); CARBON DIOXIDE 26.4 mmol/L (21.0-32.0); CHLORIDE - SERUM 105 mmol/L (98-107); CKMB 0.4 U/L (0.0-3.6); CREATINE KINASE 59 UL (21-232); GLUCOSE 135 mg/dL (74-106); SODIUM 142 mmol/L (136-145); TROPONIN-I < 0.017 ng/mL (0.000-0.060); UREA NITROGEN 21 mg/dL (7-18)
[2017-02-01 07:15] LABS: CREATININE - SERUM 0.5 mg/dL (0.6-1.3); POTASSIUM - SERUM 5.2 mmol/L (3.5-5.1); eGFR NON AFRICAN AMERICAN > 90 mL/min (90-120)
--- NOTE | 2017-02-01 07:30 | NUR ---
INTRODUCED MYSELF TO PT PRIMARY RN FOR TODAYS SHIFT. PT RESTING QUIETLY IN BED WITH AT BEDSIDE. PT DENIES ANY CURRENT NEEDS. WILL CHECK CHART AND CONTINUE WITH ORDERS.
--- NOTE | 2017-02-01 09:31 | NUR ---
AM ROUNDS COMPLETED. PT RESTING QUIETLY IN BED WITH AT BEDSIDE. CL IN REACH, BED IN LOWEST, SIDE RAILS X2. WILL CPOC.
--- NOTE | 2017-02-01 12:00 | NUR ---
BS 185. PT DENIED WANTING COVERAGE R/T NORMALLY ORALLY CONTROLLED AND NOT WANTING INSULIN UNLESS ABSOLUTELY REQUIRED. RESPECTED PTS WISHES. AND WILL CTM.
--- NOTE | 2017-02-01 14:25 | NUR ---
PT SITTING UP IN BED RESTING WITH FAMILY VISITING. PT WAITING ON CTA TO BE COMPLETED PT NPO AND VERABLIZED UNDERSTANDING. PT DENIES ANY CURRENT PAIN OR NEEDS. CL IN REACH, BED IN LOWEST, SIDE RAILS X2. WILL CPOC.
--- NOTE | 2017-02-01 18:14 | NUR ---
URINE SAMPLE COLLECTED AND SENT TO LAB.
[2017-02-01 18:31] LABS: APPEARANCE CLEAR (CLEAR); BILIRUBIN NEGATIVE (NEGATIVE); COLOR YELLOW (YELLOW); GLUCOSE 50 mg/dL (NEGATIVE); KETONE NEGATIVE (NEGATIVE); NITRITE NEGATIVE (NEGATIVE); PROTEIN NEGATIVE (NEGATIVE); SPECIFIC GRAVITY 1.015 (1.005-1.020); UROBILINOGEN NORMAL (NORMAL)
--- NOTE | 2017-02-01 19:24 | NUR ---
PT SITTING ON SIDE OF BED. RECEIVING BREATING TREATMENT. AT BEDSIDE. O2 5L NC. D5 1/2NS INFUSING TO RIGHT HAND. PT DENIES ANY NEEDS.NO S/S OF DISTRESS. WILL CPOC
--- NOTE | 2017-02-01 23:42 | NUR ---
PT ASLEEP. RESPIRATIONS EVEN AND UNLABORED. NO S/S OF DISTRESS. AT BEDSIDE. BED LOW CALL LIGHT IN REACH WILL CPOC
[2017-02-02] VITALS: BP 122/63
[2017-02-02 04:37] VITALS: BP 117/73
[2017-02-02 05:04] LABS: BASOPHILS 0.1 % (0-2); EOSINOPHILS 0.5 % (0-7); HEMATOCRIT 38.3 % (42.0-54.0); HEMOGLOBIN 11.9 g/dL (13.5-17.5); IMMATURE GRANULOCYTES 0.3 % (0-5); LYMPHOCYTES 7.4 % (15-50); MCH 31.3 pg (26.0-34.0); MCHC 31.1 g/dL (31.0-37.0); MCV 100.8 fL (80.0-100.0); MEAN PLATELET VOLUME 9.2 fL (7.4-10.4); MONOCYTES 9.8 % (2-11); NEUTROPHILS 81.9 % (40-80); PLATELET COUNT 197 10x3/uL (130-400); RDW 14.7 % (11.5-14.5); WBC 11.8 10x3/uL (4.8-10.8)
[2017-02-02 05:37] LABS: CALC OSMOLALITY 279 mosm/kg (275-300); CALCIUM 8.1 mg/dL (8.5-10.1); CARBON DIOXIDE 30.3 mmol/L (21.0-32.0); CHLORIDE - SERUM 108 mmol/L (98-107); GLUCOSE 157 mg/dL (74-106); MAGNESIUM - SERUM 1.9 mg/dL (1.8-2.4); POTASSIUM - SERUM 4.6 mmol/L (3.5-5.1); SODIUM 137 mmol/L (136-145); UREA NITROGEN 22 mg/dL (7-18)
[2017-02-02 05:38] LABS: CREATININE - SERUM 0.8 mg/dL (0.6-1.3); eGFR NON AFRICAN AMERICAN > 90 mL/min (90-120)
--- NOTE | 2017-02-02 08:07 | NUR ---
AM ROUNDS COMPLETED. PT A&O SITTING UP IN BEDSIDE CHAIR. RR NONLABORED WITH NC @4L IN PLACE. SHIFT ASSESSMENT COMPLETED. PT DENIES ANY CURRENT PAIN OR NEEDS AT THIS TIME. CL IN REACH, AT BEDSIDE. WILL CPOC.
[2017-02-02 08:42] VITALS: BP 121/89
[2017-02-02 08:51] LABS: PRE-ALBUMIN 19.8 mg/dL (18.0-35.7); THYROID STIMULATING HORMONE 0.19 uIU/mL (0.36-3.74)
--- NOTE | 2017-02-02 10:25 | NUR ---
PT SITTING UP IN BEDSIDE CHAIR RESTING QUIETLY AND STATES HE IS COMFORTABLE. FAMILY AT BEDSIDE. PT DENIES ANY CURRENT PAIN OR NEEDS AT THIS TIME. CL IN REACH, WILL CPOC.
[2017-02-02 12:40] VITALS: BP 112/75
--- NOTE | 2017-02-02 13:48 | NUR ---
PT RESTING QUIETLY IN BED WITH AT BEDSIDE. PT STATES HE IS FEELING PRETTY GOOD. VERY GOOD URINE OUTPUT WITH THE LASIX. PT DENIES ANY CURRENT PAIN OR NEEDS AT THIS TIME. WILL CPOC.
--- NOTE | 2017-02-02 16:55 | NUR ---
PT SITTING UP IN BEDSIDE CHAIR EATING DINNER. PT DENIES ANY CURRENT NEEDS AT THIS TIME. CL IN REACH. WILL CPOC.
--- NOTE | 2017-02-02 18:03 | NUR ---
STRICT I&O COLLECTED AND RECORDED. PT HAVING GREAT OUTPUT RESULTS A TOTAL OF 2680ML ON MY SHIFT. PT SITTING UP IN BEDSIDE CHAIR RESTING WITH AT BEDSIDE. PT STATES HE IS FEELING "PRETTY GOOD" AND HAS HAD A GOOD DAY OVERALL. PT DENIES ANY CURRENT PAIN OR NEEDS AT THIS TIME. CL IN REACH. WILL CPOC.
--- NOTE | 2017-02-02 19:41 | NUR ---
SITTING IN BEDSIDE CHAIR. DENIES PAIN OR ANY NEEDS. ASSESSMENTS COMPLETED. HIS IS STAYING WITH HIM IN ROOM.
[2017-02-02 20:27] VITALS: BP 110/68
[2017-02-03 03:55] VITALS: BP 119/68
[2017-02-03 04:00] VITALS: BP 121/78
--- NOTE | 2017-02-03 06:00 | NUR ---
SITTING ON SIDE OF BED. ADMIN SCHED MEDS. DENIES ANY NEEDS.
[2017-02-03 06:13] LABS: BASOPHILS 0.1 % (0-2); EOSINOPHILS 0.8 % (0-7); HEMATOCRIT 38.8 % (42.0-54.0); HEMOGLOBIN 11.9 g/dL (13.5-17.5); IMMATURE GRANULOCYTES 0.5 % (0-5); LYMPHOCYTES 6.3 % (15-50); MCH 31.2 pg (26.0-34.0); MCHC 30.7 g/dL (31.0-37.0); MCV 101.6 fL (80.0-100.0); MEAN PLATELET VOLUME 9.8 fL (7.4-10.4); MONOCYTES 10.9 % (2-11); NEUTROPHILS 81.4 % (40-80); PLATELET COUNT 215 10x3/uL (130-400); RBC 3.82 10x6/uL (4.20-6.10); RDW 14.8 % (11.5-14.5); WBC 9.8 10x3/uL (4.8-10.8)
[2017-02-03 06:24] LABS: CALC OSMOLALITY 287 mosm/kg (275-300); CARBON DIOXIDE 33.3 mmol/L (21.0-32.0); CHLORIDE - SERUM 104 mmol/L (98-107); CREATININE - SERUM 0.9 mg/dL (0.6-1.3); GLUCOSE 193 mg/dL (74-106); SODIUM 140 mmol/L (136-145); UREA NITROGEN 25 mg/dL (7-18); eGFR NON AFRICAN AMERICAN 87 mL/min (90-120)
[2017-02-03 06:26] LABS: POTASSIUM - SERUM 3.9 mmol/L (3.5-5.1)
--- NOTE | 2017-02-03 07:48 | NUR ---
AM ROUNDING DONE WITH PATIENT SITTING ON SIDE OF BED WITH O2 ON, AT BEDSIDE. ON HEART MONITOR SHOWING AF, HR 140. RIGHT WRIST SEEN WITH SALINE LOCK. ON EP, LAB VALUES ARE NORMAL. 4+ PITTING EDEMA TO LOWER LEGS AND FEET. ON STRICT I AND O. ENCOURAGED PATIENT TO ELEVATE LEGS PAST BREAKFAST. ASKED PATIENT IF HE HAD HIS KYE HOSE AND HE SAID NO, I TOLD HIM THAT I WOULD LOOK INTO GETTING HIM SOME.
[2017-02-03 07:53] VITALS: BP 121/74
--- NOTE | 2017-02-03 09:41 | NUR ---
2 PILLOWS PLACED UNDER BILATERAL LEGS TO HELP REDUCE SWELLING.
--- NOTE | 2017-02-03 12:22 | EC ---
PATIENT:ARMANDO CURRY DATE OF SERVICE: 01/31/17 SEX: M MEDICAL RECORD: [id number] DATE OF : 36 LOCATION:D.M2 D.213 AGE OF PATIENT: 76 ADMISSION DATE: 01/31/17 REFERRING PHYSICIAN: INTERPRETING PHYSICIAN: WAYNE NEGRETE MD ECHOCARDIOGRAM REPORT ECHO CHARGES 5 ECHO LIMITED CLINICAL DIAGNOSIS: RESP DISTRESS, EDEMA HXOF CAD/CABG/AFIB ECHOCARDIOGRAPHIC MEASUREMENTS (adult normal given) AC root (d.<3.7cm) 4.0 cm LV Septum d (<1.2 cm> 1.8 cm Valve Excursion 1.6 cm LV Septum (systole) 2.1 cm Left Atria (s.<4.0cm> 5.0 cm LVPW d(<1.2cm) 2.1 cm RV (d.<2.3cm) 2.3 cm LVPW (sytole) 2.6 cm LV diastole(<5.6CM) 2.7 cm MV E-F(>70mm/sec) cm LV systole 0.9 cm LVOT Diameter 1.7 cm MV exc.(>10mm) cm Est.ejection fraction (50-75%) % Pericardial Effusion N DOPPLER: LVIT cm/sec A cm/sec E cm/sec LA cm/sec RVSP mmHg LVOT cm/sec AOP1/2T m/s Asc. Ao cm/sec RVOT 75 cm/sec RA cm/sec PA 119 cm/sec AV Gradient Peak mmHg AV Mean mmHg AV Area cm MV Gradient Peak mmHg MV Mean mmHg MV Area cm COMMENTS: Patient Resource Specialist: [place]boner: MARC DATE OF SERVICE: 02/01/2017 Limited Echocardiogram for Ejection Fraction FINDINGS: Left ventricular chamber size is within normal limits. Left ventricular systolic function is preserved at 60%. Concentric left ventricular hypertrophy is present, but no evidence of left ventricular outflow tract hypertrophy. No evidence of pericardial effusion. TRANSINT:[id number] Voice Confirmation ID: [id number] DOCUMENT ID: [id number] ECHOCARDIOGRAM REPORT [id number] ANTOINETTEARMANDO JEFFREY MD at 1222 CC: [id number] DICTATION DATE: 02/01/17 1540 EXECUTIVE SALES MANAGER: 02/01/17 2050 ADM IN [address] [address]
[2017-02-03 12:33] VITALS: BP 118/81
[2017-02-03 16:49] VITALS: BP 131/89
--- NOTE | 2017-02-03 17:08 | NUR ---
PATIENT SITTING ON SIDE OF BED EATING SUPPER. IS AT BEDSIDE. METFORMIN GIVEN.
[2017-02-03 20:00] VITALS: BP 124/82
[2017-02-04 04:00] VITALS: BP 110/70
[2017-02-04 07:06] LABS: BASOPHILS 0.1 % (0-2); EOSINOPHILS 0.6 % (0-7); HEMATOCRIT 39.3 % (42.0-54.0); IMMATURE GRANULOCYTES 0.6 % (0-5); LYMPHOCYTES 8.2 % (15-50); MCHC 30.5 g/dL (31.0-37.0); MCV 101.6 fL (80.0-100.0); MEAN PLATELET VOLUME 9.3 fL (7.4-10.4); MONOCYTES 11.4 % (2-11); NEUTROPHILS 79.1 % (40-80); PLATELET COUNT 194 10x3/uL (130-400); RBC 3.87 10x6/uL (4.20-6.10); RDW 14.5 % (11.5-14.5); WBC 9.4 10x3/uL (4.8-10.8)
[2017-02-04 07:43] LABS: CALC OSMOLALITY 285 mosm/kg (275-300); CARBON DIOXIDE 32.5 mmol/L (21.0-32.0); CHLORIDE - SERUM 104 mmol/L (98-107); CREATININE - SERUM 0.9 mg/dL (0.6-1.3); GLUCOSE 146 mg/dL (74-106); POTASSIUM - SERUM 4.3 mmol/L (3.5-5.1); SODIUM 140 mmol/L (136-145); UREA NITROGEN 23 mg/dL (7-18); eGFR NON AFRICAN AMERICAN 87 mL/min (90-120)
--- NOTE | 2017-02-04 07:54 | NUR ---
AM ROUNDING DONE WITH PATIENT SITTING ON SIDE OF BED WITH PRESENT. ON 3.5L PER NC. ON HEART MONITOR SHOWING AF, HR 82, SALINE LOCK SEEN TO RIGHT WRIST. ON EP, LAB NORMAL. POC GLUCOSE IS 146, ON METFORMIN. BILATERAL LOWER LEGS STILL WITH PITTING EDEMA, LEFT LEG IS MORE SWOLLEN THAN RIGHT. NON SKID SOCKS ON. WILL MONITOR.
[2017-02-04 08:57] VITALS: BP 120/74
--- NOTE | 2017-02-04 11:19 | NUR ---
POC GLUCOSE IS 162. TO REFUSE HIS INSULIN FOR 2 U HE IS ON METFORMIN AND SHE THINKS THIS WILL HELP. WILL CHECK POC GLUCOSE AGAIN AT SUPPER.
[2017-02-04 12:12] VITALS: BP 111/56
--- NOTE | 2017-02-04 13:20 | NUR ---
RD follow up note, pt visited and chart reviewed Pt with good appetite, tolerating regular diet. No n/v/c/d/chewing/swallowing problems. Seen by ST for eval, no s/s of aspiration Diet: regular PO: 100% most of the time Meds: Lasix, Metformin, Florajen Skin: no new issues noted since 02/02. Ronaldo Flores WT: 02/04-219,01/31-225, wt change suspected to be influenced by fluid Pt eating well, wt change likely fluid since on lasix and has had edema. No changes at this time. MD may want to consider low sodium diet if edema continues. Plan: RD to follow.
--- NOTE | 2017-02-04 15:01 | NUR ---
Rehab Prescreening Consult recieved and the patient has been visited. He has ambulated 250 ft with PT and does not have increased SOB. He plans to go to an OP clinic in [place] for his therapy. His is at the bedside and agrees with this plan. Discussed with the CM Teodoro Ramirez. Elinor Goodwin RN Clinical Liaison, rehab
[2017-02-04] MEDS ORDERED: CARDIZEM30 MG PO (15:55)
[2017-02-04] MEDS ORDERED: LANOXIN250 MCG PO (15:55)
[2017-02-04] MEDS ORDERED: OMNICEF300 MG PO (15:58)
[2017-02-04] MEDS ORDERED: FLORAJEN3 CAPS460 MG PO (15:59)
--- NOTE | 2017-02-04 16:37 | NUR ---
Patient Name: ARMANDO CURRY Admission Status: Elective Accout number: [id number] Admission Date: 01-31-2017 : 1940 Admission Diagnosis:SHORTNESS OF BREATH Attending: HONEY DUBOIS Current LOS: 4 Anticipated DC Date: 02-04-2017 Planned Disposition: Outpatient clinics\services (Programs) Primary Insurance: MEDICARE A & B PLANNED EXTERNAL PROVIDER: [facility] Discharge Planning Comments: * Is the patient Alert and Oriented? Yes 0 * How many steps to enter\exit or inside your home? NONE 0 * PCP DR. DUBOIS 0 * Pharmacy [facility] [place] 0 * Preadmission Environment Home with Family 0 * ADLs Independent 0 * Equipment Bedside Commode Cane Walker 0 * Other Equipment NO MEDICAL EQUIPMENT PROVIDER PREFERENCE 0 * List name and contact numbers for known caregivers / representatives who currently or will assist patient after discharge: JUAN CURRY, SPOUSE, 0 * Community resources currently utilized None 0 * Please name any agencies selected above. NONE 0 * Additional services required to return to the preadmission environment? Yes * Can the patient safely return to the preadmission environment? Yes 0 * Has this patient been hospitalized within the prior 30 days at any hospital? No 0 CM RECEIVED ORDER FOR INPATIENT REHAB, CM MET WITH PT AND SPOUSE IN ROOM TO DISCUSS DISCHARGE PLANNING AND NEEDS. PT REPORTS LIVING AT HOME INDEPENDENTLY WITH SPOUSE. PT HAS BEDSIDE COMMODE, CANE AND WALKER WITH NO MEDICAL EQUIPMENT PROVIDER. PT HAS NO OUTSIDE SERVICES ASSISTING IN THE HOME. CM DISCUSSED AVAILABILITY OF HOME HEALTH, REHAB SERVICES AND MEDICAL EQUIPMENT. PT AND SPOUSE DO NOT THINK THEY WANT INPATIENT OR SNF REHAB, WILL PROBABLY WANT OUTPATIENT REHAB AT [facility] IN [place]. PT REPORTS HIS SPOUSE WILL PICK HIM UP FOR DISCHARGE HOME. IMPORTANT MESSAGE FROM MEDICARE PROVIDED AND EXPLAINED. CM SPOKE TO SHOAIB OF INPATIENT REHAB WHO REPORTED THAT PT DECLINED INPATIENT REHAB, THEY WANT OUTPATIENT REHAB AND PT MAY REQUIRE OXYGEN AT DISCHARGE. CM SPOKE TO BERNARDO WAYNE WHO PROVIDED ORDER FOR OUTPATIENT PHYSICAL THERAPY. CM CALLED [facility] IN [place], , SPOKE TO ROWAN WHO WILL RECEIVE REFERRAL AND CONTACT PT NEXT WEEK TO SET OUTPATIENT APPOINTMENT FOR THERAPY SERVICES. CM FAXED REFERRAL TO [facility] AT [phone]. CM TO ARRANGE HOME OXYGEN SERVICES IF REQUIRED FOR DISCHARGE HOME WITH QUALIFYING TESTING AND PHYSICIAN ORDERS. Nurse Private Duty: Masood Ramirez
--- NOTE | 2017-02-04 16:42 | NUR ---
1643-SITTING AT REST ON ROOM AIR 85% 1645-PLACED BACK ON 2L PER NC AND O2 SAT IS 96%. CALL PLACED TO ROBERT DENNISON.
--- NOTE | 2017-02-04 16:55 | NUR ---
RADHA WITH CM TO CALL DR MOORE FOR SOME HOME OXYGEN.
--- NOTE | 2017-02-04 17:09 | NUR ---
Patient Name: ARMANDO CURRY Encounter No: [id number] : 1940 Primary Insurance: MEDICARE A & B Anticipated DC Date: 02-04-2017 Planned Disposition: Outpatient clinics\services (Programs) External Planned Provider: [facility] follow-up note: CM RECEIVED OXYGEN TESTING AND DISCHARGE ORDER, MET WITH PT AND SPOUSE IN ROOM WHO HAVE NO PREFERENCE ON OXYGEN PROVIDER LONG AT IT IS DELIVERED SOON POSSIBLE AND SUGGESTED [facility] PT GETS DIABETES SUPPLIES FROM THEM. CM CALLED [facility] AT [phone], SPOKE TO JACINTO WHO REPORTS THEY WILL DELIVER PORTABLE TO ROOM SOON POSSIBLE FOR DISCHARGE HOME SHORTLY. [facility] TO DELIVER HOME OXYGEN AFTER PT GETS HOME TONIGHT. PT AND BEDSIDE NURSE NOTIFIED. CM FAXED REFERRAL FOR OXYGEN TO [phone]. PT DENIES FURTHER NEEDS, PT'S SPOUSE TO TRANSPORT HOME. Masood Ramirez, CASE MANAGEMENT
--- NOTE | 2017-02-04 17:54 | NUR ---
PER PATIENT STATES THAT [facility] IS CLOSED. REQUESTS THAT HIS MEDS BE CALLED INTO [facility] ON [address] ([phone]) I CALLED AND SPOKE TO ARYA Meyer/Christopher KAY, PHIL SINGH, AND CHRISTIANO. SALINE LOCK REMOVED WITH CATH TIP INTACT. HEART MONITOR HAS BEEN TURNED IN. VERBAL AND WRITTEN DISCHARGE INSTRCUTIONS GIVEN TO AND PATIENT. PORTABLE OXYGEN IS HERE. WILL DISCHARGE HOME VIA WHEELCHAIR WHEN READY.
--- NOTE | 2017-02-04 18:15 | NUR ---
[facility] TO CALL BACK AND STATES THAT THE INSUREANCE WILL NOT PAY FOR THE SCRIPTS MEDS HAVE BEEN EXCRIPTED TO [facility]. THEY WILL GIVE THE PATIENT SEVERAL TO LAST THE WEEKEND THOUGH. THIS IS RELAYED TO THE PATIENT AND THE . DISCHARGED HOME VIA WHEELCHAIR.
== END 2017-02-04 18:17 | disposition home or self-care (01) | DRG 291 ==
LOC: D.M2 17:45
PROVIDERS: Family Medicine Adult Medicine; Internal Medicine Interventional Cardiology; Internal Medicine Pulmonary Disease; ADMIT Family Medicine
DX: I11.0 Hypertensive heart disease with heart failure (principal); J18.9 Pneumonia, unspecified organism; J44.1 Chronic obstructive pulmonary disease with (acute) exacerbation; I82.431 Acute embolism and thrombosis of right popliteal vein; J98.11 Atelectasis; I48.92 Unspecified atrial flutter; I50.33 Acute on chronic diastolic (congestive) heart failure; I48.91 Unspecified atrial fibrillation; I25.10 Atherosclerotic heart disease of native coronary artery without angina pectoris; E78.5 Hyperlipidemia, unspecified; G47.33 Obstructive sleep apnea (adult) (pediatric); Z91.19 Patient's noncompliance with other medical treatment and regimen; N40.0 Benign prostatic hyperplasia without lower urinary tract symptoms; E11.9 Type 2 diabetes mellitus without complications; E55.9 Vitamin D deficiency, unspecified; Z95.1 Presence of aortocoronary bypass graft; Z86.73 Personal history of transient ischemic attack (TIA), and cerebral infarction without residual deficits

== ENCOUNTER → 2017-05-04 08:31 | Outpatient (CLI) | payer MEDICARE, BC ==
[2017-02-01 10:55] VITALS: BMI 33.1
[~2017-05-04 08:31] MED LIST changes: +BETAPACE 120 M120 MG PO; +CARDIZEM30 MG PO; +FLORAJEN3 CAPS460 MG PO; +LANOXIN250 MCG PO; +LASIX40 MG PO; +OMNICEF300 MG PO
== END | disposition home or self-care (01) ==
LOC: D.RAD 08:31
DX: J81.1 Chronic pulmonary edema (principal); J18.9 Pneumonia, unspecified organism

== ENCOUNTER 2017-05-25 12:03 | Inpatient (IN) | payer MEDICARE, BC ==
[~2017-05-25] VITALS: Ht 175.3 cm; Wt 89.0 kg
--- NOTE | ~2017-05-25 | CN ---
PATIENT NAME:ARMANDO CURRY MEDICAL RECORD: [id number] : [birth year] LOCATION:[facility] D.2106 ADMIT DATE: 05/25/17 ACCOUNT: [id number] CONSULTING PHYSICIAN: CITLALI CHAO III, MD REFERRING PHYSICIAN: MESFIN MERA MD DATE OF CONSULTATION: 05/31/2017 FINDINGS: A 76-year-old white male, who was admitted to the hospital on May 25. The patient has a number of cardiac problems. He is status post coronary artery bypass graft. He has chronic atrial fibrillation. He was due to have an ablation procedure with Dr. Teodoro Lara in [place], but because of severe hypoxia, the patient was admitted for acute care. Consultation requested because the patient has been showing episodic confusion, particularly in the evenings. The patient has had clearcut spells of disorientation and some degree of combativeness as well. The patient was interviewed, although he could not provide much in the way of a useful history, however, and daughter were interviewed extensively. They indicate that the patient has had transient ischemic attacks in the past and has been worked up by neurology in the past. He has had several episodes of brief confusion in which he would not remember a specified period of time and then seemed to recover. He has had increasing difficulty with confusion at night over the last few weeks. MENTAL STATUS EXAM: On exam, the patient is very pleasant. Affect is shallow. Speech tends to be tangential. Content of thought negative for overt psychosis. The patient is oriented to person and the fact that he is in the hospital. He is not oriented as to time. Memory shows deficits in intermediate and short-term recall. IMRPESSION: Subacute delirium secondary to persistent hypoxemia, possible early vascular dementia. RECOMMENDATIONS: At the present time, cardiac and other workup should continue in the acute inpatient setting. Use of p.r.n. neuroleptics as currently ordered is appropriate. Discussed his care extensively with the family and advised them to offer as much stimulation as possible such as bringing familiar objects from home, leaving the television on in the evenings, and reading to him. They expressed gratitude for this and indicated that they would implement these. Given the frailty of his current medical status, the patient is not a candidate for transfer to [facility]. TRANSINT:[id number] Voice Confirmation ID: [id number] DOCUMENT ID: [id number] CITLALI CHAO III, MD at 1020 CC: [id number] DICTATION DATE: 05/31/17 1248 ASSISTANT DESIGNER: 05/31/17 1343 ADM IN [address] [address] [place] [address]
[~2017-05-25 12:03] MED LIST changes: -LASIX40 MG PO
[2017-05-25 13:36] LABS: ALBUMIN 3.2 g/dL (3.4-5.0); ALKALINE PHOSPHATASE 73 U/L (46-116); ALT (SGPT) 28 U/L (10-68); BILIRUBIN - TOTAL 0.74 mg/dL (0.2-1.3); CALC OSMOLALITY 283 mosm/kg (275-300); CALCIUM 8.8 mg/dL (8.5-10.1); CARBON DIOXIDE 33.7 mmol/L (21.0-32.0); CHLORIDE - SERUM 102 mmol/L (98-107); CREATININE - SERUM 0.8 mg/dL (0.6-1.3); GLUCOSE 118 mg/dL (74-106); POTASSIUM - SERUM 4.2 mmol/L (3.5-5.1); SODIUM 141 mmol/L (136-145); UREA NITROGEN 19 mg/dL (7-18); eGFR NON AFRICAN AMERICAN > 90 mL/min (90-120)
[2017-05-25 13:43] LABS: BASOPHILS 0.2 % (0-2); EOSINOPHILS 1.2 % (0-7); HEMATOCRIT 39.3 % (42.0-54.0); IMMATURE GRANULOCYTES 0.5 % (0-5); LYMPHOCYTES 6.7 % (15-50); MCH 30.2 pg (26.0-34.0); MCHC 30.5 g/dL (31.0-37.0); MEAN PLATELET VOLUME 9.6 fL (7.4-10.4); MONOCYTES 11.8 % (2-11); NEUTROPHILS 79.6 % (40-80); PLATELET COUNT 201 10x3/uL (130-400); RBC 3.97 10x6/uL (4.20-6.10); RDW 14.3 % (11.5-14.5)
[2017-05-25 13:44] LABS: CREATINE KINASE 23 UL (21-232); PRO BNP 1805 pg/mL (0-450)
[2017-05-25 14:06] LABS: APPEARANCE CLEAR (CLEAR); BILIRUBIN NEGATIVE (NEGATIVE); COLOR YELLOW (YELLOW); GLUCOSE NEGATIVE (NEGATIVE); KETONE NEGATIVE (NEGATIVE); NITRITE NEGATIVE (NEGATIVE); PROTEIN NEGATIVE (NEGATIVE); UROBILINOGEN NORMAL (NORMAL)
[2017-05-25] MEDS ORDERED: TOPROL XL50 MG PO (16:50)
[2017-05-25] MEDS ORDERED: LASIX40 MG PO (16:52)
[2017-05-25 16:53] VITALS: BP 116/61; BMI 31.5
[2017-05-25 21:44] VITALS: BP 116/61
[2017-05-26 04:47] VITALS: BP 103/56
[2017-05-26 06:06] LABS: BASOPHILS 0 % (0-2); EOSINOPHILS 0 % (0-7); HEMATOCRIT 37.5 % (42.0-54.0); HEMOGLOBIN 11.5 g/dL (13.5-17.5); IMMATURE GRANULOCYTES 0.5 % (0-5); LYMPHOCYTES 5.5 % (15-50); MCH 30.2 pg (26.0-34.0); MCHC 30.7 g/dL (31.0-37.0); MCV 98.4 fL (80.0-100.0); MEAN PLATELET VOLUME 9.6 fL (7.4-10.4); MONOCYTES 8.2 % (2-11); NEUTROPHILS 85.8 % (40-80); PLATELET COUNT 209 10x3/uL (130-400); RBC 3.81 10x6/uL (4.20-6.10); RDW 14.4 % (11.5-14.5)
[2017-05-26 06:14] LABS: WBC 8.8 10x3/uL (4.8-10.8)
[2017-05-26 06:40] LABS: CALC OSMOLALITY 285 mosm/kg (275-300); CALCIUM 8.9 mg/dL (8.5-10.1); CARBON DIOXIDE 32.9 mmol/L (21.0-32.0); CHLORIDE - SERUM 102 mmol/L (98-107); CREATININE - SERUM 0.9 mg/dL (0.6-1.3); GLUCOSE 150 mg/dL (74-106); MAGNESIUM - SERUM 2.8 mg/dL (1.8-2.4); PHOSPHOROUS 4.9 mg/dL (2.5-4.9); POTASSIUM - SERUM 5.1 mmol/L (3.5-5.1); SODIUM 140 mmol/L (136-145); UREA NITROGEN 24 mg/dL (7-18); eGFR NON AFRICAN AMERICAN 87 mL/min (90-120)
[2017-05-26 07:49] VITALS: BP 111/53
[2017-05-26 11:48] VITALS: BP 121/63
[2017-05-26 12:59] VITALS: Ht 175.3 cm; Wt 89.0 kg
[2017-05-26 16:18] VITALS: BP 109/45
[2017-05-26 21:03] VITALS: BP 91/46
[2017-05-26 23:54] VITALS: BP 112/46
[2017-05-27 04:49] VITALS: BP 115/57
[2017-05-27 08:01] VITALS: BP 122/56
[2017-05-27 11:15] LABS: ANA REFLEX - DIRECT Negative (Negative)
[2017-05-27 12:33] VITALS: BP 123/56
[2017-05-27 16:06] VITALS: BP 119/53
[2017-05-27 19:00] VITALS: BP 118/64
[2017-05-28 04:00] VITALS: BP 139/69
[2017-05-28 06:44] LABS: BASOPHILS 0 % (0-2); EOSINOPHILS 0 % (0-7); HEMATOCRIT 38.1 % (42.0-54.0); HEMOGLOBIN 11.6 g/dL (13.5-17.5); IMMATURE GRANULOCYTES 0.3 % (0-5); LYMPHOCYTES 2.8 % (15-50); MCH 30.3 pg (26.0-34.0); MCHC 30.4 g/dL (31.0-37.0); MCV 99.5 fL (80.0-100.0); MEAN PLATELET VOLUME 10.1 fL (7.4-10.4); MONOCYTES 7.4 % (2-11); NEUTROPHILS 89.5 % (40-80); PLATELET COUNT 243 10x3/uL (130-400); RBC 3.83 10x6/uL (4.20-6.10); RDW 14.2 % (11.5-14.5)
[2017-05-28 07:00] LABS: WBC 15.9 10x3/uL (4.8-10.8)
[2017-05-28 07:08] LABS: % SATURATION 12 % (15-55); IRON 38 ug/dl (35-150); TOTAL IRON BIND CAPACITY 313 ug/dl (260-445); UNSAT IRON BIND CAPACITY 275 ug/dl (150-375)
[2017-05-28 07:20] LABS: ANION GAP 10.4 mmol/L (8-16); CARBON DIOXIDE 33.4 mmol/L (21.0-32.0); MAGNESIUM - SERUM 2.5 mg/dL (1.8-2.4); PHOSPHOROUS 4.1 mg/dL (2.5-4.9); POTASSIUM - SERUM 4.8 mmol/L (3.5-5.1)
[2017-05-28 07:24] LABS: CREATININE - SERUM 1.2 mg/dL (0.6-1.3)
[2017-05-28 07:43] VITALS: BP 139/62
[2017-05-28 11:53] VITALS: BP 120/85
[2017-05-28 15:52] VITALS: BP 124/61
[2017-05-28 21:26] VITALS: BP 116/44
[2017-05-29 01:29] VITALS: BP 108/90
[2017-05-29 05:36] LABS: BASOPHILS 0 % (0-2); EOSINOPHILS 0.3 % (0-7); HEMATOCRIT 39.3 % (42.0-54.0); IMMATURE GRANULOCYTES 0.6 % (0-5); LYMPHOCYTES 5.4 % (15-50); MCH 29.9 pg (26.0-34.0); MCHC 30.5 g/dL (31.0-37.0); MEAN PLATELET VOLUME 9.7 fL (7.4-10.4); MONOCYTES 11.1 % (2-11); NEUTROPHILS 82.6 % (40-80); PLATELET COUNT 218 10x3/uL (130-400); RBC 4.01 10x6/uL (4.20-6.10); RDW 14.3 % (11.5-14.5); WBC 14.2 10x3/uL (4.8-10.8)
[2017-05-29 05:53] LABS: ANION GAP 8.3 mmol/L (8-16); CALCIUM 9.5 mg/dL (8.5-10.1); CARBON DIOXIDE 35.3 mmol/L (21.0-32.0); CREATININE - SERUM 1.2 mg/dL (0.6-1.3); POTASSIUM - SERUM 4.6 mmol/L (3.5-5.1)
[2017-05-29 07:39] LABS: MAGNESIUM - SERUM 2.6 mg/dL (1.8-2.4); PHOSPHOROUS 3.2 mg/dL (2.5-4.9)
[2017-05-29 08:22] VITALS: BP 145/67
[2017-05-29 12:55] VITALS: BP 114/67
[2017-05-29 16:25] VITALS: BP 125/50
[2017-05-29 21:27] VITALS: BP 108/67
[2017-05-30] VITALS (7 sets, daily range): BP systolic 90–115; BP diastolic 41–69
[2017-05-30 12:16] LABS: BASOPHILS 0.1 % (0-2); EOSINOPHILS 2.2 % (0-7); HEMOGLOBIN 11.7 g/dL (13.5-17.5); IMMATURE GRANULOCYTES 1.4 % (0-5); LYMPHOCYTES 8.2 % (15-50); MCH 30.2 pg (26.0-34.0); MCHC 30.8 g/dL (31.0-37.0); MCV 98.2 fL (80.0-100.0); MEAN PLATELET VOLUME 10.1 fL (7.4-10.4); MONOCYTES 12.2 % (2-11); NEUTROPHILS 75.9 % (40-80); PLATELET COUNT 187 10x3/uL (130-400); RBC 3.87 10x6/uL (4.20-6.10); RDW 14.4 % (11.5-14.5)
[2017-05-30 12:17] LABS: WBC 10.3 10x3/uL (4.8-10.8)
[2017-05-30 12:18] LABS: ANION GAP 11.2 mmol/L (8-16); CALCIUM 9.1 mg/dL (8.5-10.1); CARBON DIOXIDE 31.9 mmol/L (21.0-32.0); CREATININE - SERUM 1.3 mg/dL (0.6-1.3); POTASSIUM - SERUM 4.1 mmol/L (3.5-5.1)
[2017-05-30 13:28] LABS: BILIRUBIN - DIRECT 0.12 mg/dL (0.00-0.30); BILIRUBIN - INDIRECT 0.56 mg/dL (0.00-1.00); BILIRUBIN - TOTAL 0.68 mg/dL (0.2-1.3); PROTEIN - SERUM 6.5 g/dL (6.4-8.2)
[2017-05-31 04:00] VITALS: BP 126/64
[2017-05-31 06:20] LABS: BASOPHILS 0 % (0-2); EOSINOPHILS 0.6 % (0-7); HEMATOCRIT 36.6 % (42.0-54.0); HEMOGLOBIN 11.5 g/dL (13.5-17.5); IMMATURE GRANULOCYTES 0.9 % (0-5); LYMPHOCYTES 7.1 % (15-50); MCH 30.1 pg (26.0-34.0); MCHC 31.4 g/dL (31.0-37.0); MEAN PLATELET VOLUME 10.2 fL (7.4-10.4); NEUTROPHILS 82.4 % (40-80); PLATELET COUNT 179 10x3/uL (130-400); RBC 3.82 10x6/uL (4.20-6.10); RDW 14.4 % (11.5-14.5)
[2017-05-31 06:22] LABS: MCV 95.8 fL (80.0-100.0)
[2017-05-31 06:55] LABS: ANION GAP 11.6 mmol/L (8-16); CARBON DIOXIDE 33.4 mmol/L (21.0-32.0); CREATININE - SERUM 1.4 mg/dL (0.6-1.3)
[2017-05-31 08:00] VITALS: BP 107/55
[2017-05-31 13:48] VITALS: BP 121/64
[2017-05-31 17:04] VITALS: BP 138/64
[2017-05-31 20:46] VITALS: BP 138/60
[2017-05-31 21:17] LABS: APPEARANCE CLEAR (CLEAR); BILIRUBIN NEGATIVE (NEGATIVE); COLOR YELLOW (YELLOW); GLUCOSE NEGATIVE (NEGATIVE); KETONE NEGATIVE (NEGATIVE); NITRITE NEGATIVE (NEGATIVE); PROTEIN NEGATIVE (NEGATIVE); UROBILINOGEN NORMAL (NORMAL)
[2017-05-31 23:44] VITALS: BP 131/55
[2017-06-01 04:46] VITALS: BP 123/66
[2017-06-01 05:35] LABS: BASOPHILS 0 % (0-2); EOSINOPHILS 1.7 % (0-7); HEMATOCRIT 36.5 % (42.0-54.0); HEMOGLOBIN 11.3 g/dL (13.5-17.5); IMMATURE GRANULOCYTES 0.9 % (0-5); LYMPHOCYTES 6.7 % (15-50); MCH 29.5 pg (26.0-34.0); MCV 95.3 fL (80.0-100.0); MEAN PLATELET VOLUME 10.1 fL (7.4-10.4); MONOCYTES 8.3 % (2-11); NEUTROPHILS 82.4 % (40-80); PLATELET COUNT 160 10x3/uL (130-400); RBC 3.83 10x6/uL (4.20-6.10); RDW 14.4 % (11.5-14.5); WBC 9.5 10x3/uL (4.8-10.8)
[2017-06-01 06:16] LABS: ANION GAP 9.6 mmol/L (8-16); CALCIUM 8.8 mg/dL (8.5-10.1); CREATININE - SERUM 1.2 mg/dL (0.6-1.3); POTASSIUM - SERUM 3.6 mmol/L (3.5-5.1)
[2017-06-01 09:33] VITALS: BP 114/58
[2017-06-01 13:26] VITALS: BP 100/50
[2017-06-01 19:00] VITALS: BP 100/46
[2017-06-02 04:00] VITALS: BP 120/67
[2017-06-02 06:55] LABS: HEMOGLOBIN 12.2 g/dL (13.5-17.5); LYMPHOCYTES 7.7 % (15-50); MCH 30.1 pg (26.0-34.0); MCHC 32.1 g/dL (31.0-37.0); MCV 93.8 fL (80.0-100.0); MEAN PLATELET VOLUME 9.9 fL (7.4-10.4); NEUTROPHILS 78.7 % (40-80); PLATELET COUNT 162 10x3/uL (130-400); RBC 4.05 10x6/uL (4.20-6.10); RDW 13.8 % (11.5-14.5)
[2017-06-02 07:09] LABS: ANION GAP 12.8 mmol/L (8-16); CALCIUM 9.4 mg/dL (8.5-10.1); CARBON DIOXIDE 32.1 mmol/L (21.0-32.0); CREATININE - SERUM 1.4 mg/dL (0.6-1.3); POTASSIUM - SERUM 3.9 mmol/L (3.5-5.1)
[2017-06-02 08:19] LABS: VITAMIN D 25 HYDROXY 16.4 ng/mL (30.0-100.0)
[2017-06-02 08:32] VITALS: BP 122/56
[2017-06-02 09:17] LABS: FOLATE (FOLIC ACID) - SERUM 5.8 ng/mL (>3.0)
[2017-06-02 21:52] VITALS: BP 104/52
[2017-06-03 06:17] VITALS: BP 126/66
[2017-06-03 06:30] LABS: BASOPHILS 0.1 % (0-2); EOSINOPHILS 2.5 % (0-7); HEMATOCRIT 36.7 % (42.0-54.0); HEMOGLOBIN 11.2 g/dL (13.5-17.5); IMMATURE GRANULOCYTES 0.9 % (0-5); LYMPHOCYTES 10.4 % (15-50); MCH 29.5 pg (26.0-34.0); MCHC 30.5 g/dL (31.0-37.0); MEAN PLATELET VOLUME 10.4 fL (7.4-10.4); MONOCYTES 11.6 % (2-11); NEUTROPHILS 74.5 % (40-80); PLATELET COUNT 156 10x3/uL (130-400); RDW 14.3 % (11.5-14.5); WBC 10.6 10x3/uL (4.8-10.8)
[2017-06-03 06:34] LABS: MCV 96.6 fL (80.0-100.0)
[2017-06-03 06:45] LABS: ANION GAP 11.4 mmol/L (8-16); CALCIUM 8.7 mg/dL (8.5-10.1); CARBON DIOXIDE 33.1 mmol/L (21.0-32.0); CREATININE - SERUM 1.3 mg/dL (0.6-1.3); POTASSIUM - SERUM 3.5 mmol/L (3.5-5.1)
[2017-06-03 08:49] VITALS: BP 109/54
[2017-06-03 12:29] VITALS: BP 129/51
[2017-06-03 17:00] VITALS: BP 99/53
[2017-06-03 20:30] VITALS: BP 98/49
[2017-06-04] VITALS: BP 102/45
[2017-06-04 06:21] VITALS: BP 111/49
[2017-06-04 06:37] LABS: BASOPHILS 0.1 % (0-2); EOSINOPHILS 2.8 % (0-7); HEMOGLOBIN 11.5 g/dL (13.5-17.5); IMMATURE GRANULOCYTES 0.9 % (0-5); LYMPHOCYTES 10.7 % (15-50); MCH 29.8 pg (26.0-34.0); MCHC 31.1 g/dL (31.0-37.0); MCV 95.9 fL (80.0-100.0); MEAN PLATELET VOLUME 10.1 fL (7.4-10.4); MONOCYTES 11.6 % (2-11); NEUTROPHILS 73.9 % (40-80); PLATELET COUNT 167 10x3/uL (130-400); RBC 3.86 10x6/uL (4.20-6.10); RDW 14.2 % (11.5-14.5); WBC 9.6 10x3/uL (4.8-10.8)
[2017-06-04 07:12] LABS: CALCIUM 8.5 mg/dL (8.5-10.1); CREATININE - SERUM 1.5 mg/dL (0.6-1.3)
[2017-06-04 08:05] VITALS: BP 103/51
[2017-06-04 12:23] VITALS: BP 97/50
[2017-06-04 21:16] VITALS: BP 105/43
[2017-06-05 01:23] VITALS: BP 92/43
[2017-06-05 05:58] VITALS: BP 80/31
[2017-06-05 06:12] LABS: BASOPHILS 0.1 % (0-2); EOSINOPHILS 2.4 % (0-7); HEMATOCRIT 33.6 % (42.0-54.0); HEMOGLOBIN 10.4 g/dL (13.5-17.5); IMMATURE GRANULOCYTES 0.9 % (0-5); LYMPHOCYTES 10.1 % (15-50); MCH 29.6 pg (26.0-34.0); MCV 95.7 fL (80.0-100.0); MEAN PLATELET VOLUME 10.1 fL (7.4-10.4); MONOCYTES 12.7 % (2-11); NEUTROPHILS 73.8 % (40-80); PLATELET COUNT 157 10x3/uL (130-400); RBC 3.51 10x6/uL (4.20-6.10); RDW 14.1 % (11.5-14.5); WBC 8.7 10x3/uL (4.8-10.8)
[2017-06-05 06:29] LABS: ANION GAP 8.6 mmol/L (8-16); CALCIUM 8.1 mg/dL (8.5-10.1); CARBON DIOXIDE 34.4 mmol/L (21.0-32.0); CREATININE - SERUM 1.7 mg/dL (0.6-1.3)
[2017-06-05 08:09] VITALS: BP 94/47
[2017-06-05 11:41] VITALS: BP 95/48
[2017-06-05 16:17] VITALS: BP 119/45
[2017-06-05 21:39] VITALS: BP 119/56
[2017-06-06 00:54] VITALS: BP 103/56
[2017-06-06 04:28] LABS: BASOPHILS 0.1 % (0-2); EOSINOPHILS 2.1 % (0-7); HEMATOCRIT 34.2 % (42.0-54.0); HEMOGLOBIN 10.5 g/dL (13.5-17.5); IMMATURE GRANULOCYTES 0.8 % (0-5); LYMPHOCYTES 8.9 % (15-50); MCH 29.7 pg (26.0-34.0); MCHC 30.7 g/dL (31.0-37.0); MCV 96.6 fL (80.0-100.0); MEAN PLATELET VOLUME 10.5 fL (7.4-10.4); MONOCYTES 11.8 % (2-11); NEUTROPHILS 76.3 % (40-80); PLATELET COUNT 163 10x3/uL (130-400); RBC 3.54 10x6/uL (4.20-6.10); WBC 8.9 10x3/uL (4.8-10.8)
[2017-06-06 04:46] LABS: CALCIUM 7.9 mg/dL (8.5-10.1); CARBON DIOXIDE 33.1 mmol/L (21.0-32.0); CREATININE - SERUM 1.5 mg/dL (0.6-1.3); DIGOXIN 1.93 ng/mL (0.90-2.00); POTASSIUM - SERUM 4.1 mmol/L (3.5-5.1)
[2017-06-06 06:02] VITALS: BP 135/54
[2017-06-06 09:46] VITALS: BP 114/51
[2017-06-06 16:29] VITALS: BP 110/41
== END 2017-06-06 17:56 | disposition home health service (06) | DRG 177 ==
LOC: D.ER 12:03 → D.M2 15:20
PROVIDERS: Emergency Medicine; Internal Medicine Nephrology; Internal Medicine Pulmonary Disease
DX: J15.6 Pneumonia due to other Gram-negative bacteria (principal); J96.21 Acute and chronic respiratory failure with hypoxia; J96.22 Acute and chronic respiratory failure with hypercapnia; I50.33 Acute on chronic diastolic (congestive) heart failure; F05 Delirium due to known physiological condition; J98.11 Atelectasis; J44.1 Chronic obstructive pulmonary disease with (acute) exacerbation; J44.0 Chronic obstructive pulmonary disease with (acute) lower respiratory infection; I11.0 Hypertensive heart disease with heart failure; F01.50 Vascular dementia, unspecified severity, without behavioral disturbance, psychotic disturbance, mood disturbance, and anxiety; E11.9 Type 2 diabetes mellitus without complications; I48.2 Chronic atrial fibrillation; I25.10 Atherosclerotic heart disease of native coronary artery without angina pectoris; D64.9 Anemia, unspecified; E55.9 Vitamin D deficiency, unspecified; E78.5 Hyperlipidemia, unspecified; N40.0 Benign prostatic hyperplasia without lower urinary tract symptoms; G47.33 Obstructive sleep apnea (adult) (pediatric); J30.9 Allergic rhinitis, unspecified; Z86.718 Personal history of other venous thrombosis and embolism; Z91.19 Patient's noncompliance with other medical treatment and regimen; Z86.73 Personal history of transient ischemic attack (TIA), and cerebral infarction without residual deficits; Z95.1 Presence of aortocoronary bypass graft; Z72.0 Tobacco use

== ENCOUNTER → 2017-08-03 09:06 | Outpatient (CLI) | payer MEDICARE, BC ==
[2017-05-26 12:59] VITALS: BMI 30.7
[~2017-08-03 09:06] MED LIST changes: +LASIX40 MG PO
== END | disposition home or self-care (01) ==
LOC: D.RT 09:06
DX: J90 Pleural effusion, not elsewhere classified (principal); I50.30 Unspecified diastolic (congestive) heart failure; I82.401 Acute embolism and thrombosis of unspecified deep veins of right lower extremity

== ENCOUNTER → 2017-10-18 09:47 | Outpatient (CLI) | payer MEDICARE, BC ==
[2017-05-26 12:59] VITALS: BMI 30.7
== END | disposition home or self-care (01) ==
LOC: D.RAD 09:47
DX: J90 Pleural effusion, not elsewhere classified (principal)

== ENCOUNTER → 2017-11-29 09:30 | Outpatient (CLI) | payer MEDICARE, BC ==
[2017-05-26 12:59] VITALS: BMI 30.7
[2017-11-29 10:55] LABS: ANION GAP 8.9 mmol/L (8-16); CALCIUM 8.8 mg/dL (8.5-10.1); CARBON DIOXIDE 29.8 mmol/L (21.0-32.0); CREATININE - SERUM 1.1 mg/dL (0.6-1.3); POTASSIUM - SERUM 4.7 mmol/L (3.5-5.1)
== END | disposition home or self-care (01) ==
LOC: D.RAD 09:30
PROVIDERS: Internal Medicine Pulmonary Disease
DX: J90 Pleural effusion, not elsewhere classified (principal); I50.32 Chronic diastolic (congestive) heart failure

== ENCOUNTER 2018-10-05 18:46 | Inpatient (IN) | payer MEDICARE, BC ==
[~2018-10-05] VITALS: Ht 175.3 cm; Wt 77.3 kg
[2018-10-05 23:07] LABS: BASOPHILS 0.4 % (0-2); HEMATOCRIT 27.2 % (42.0-54.0); HEMOGLOBIN 8.1 g/dL (13.5-17.5); IMMATURE GRANULOCYTES 1.1 % (0-5); LYMPHOCYTES 10.8 % (15-50); MCH 26.5 pg (26.0-34.0); MCHC 29.8 g/dL (31.0-37.0); MCV 88.9 fL (80.0-100.0); MEAN PLATELET VOLUME 8.6 fL (7.4-10.4); MONOCYTES 16.5 % (2-11); NEUTROPHILS 69.2 % (40-80); RBC 3.06 10x6/uL (4.20-6.10); RDW 18.9 % (11.5-14.5); WBC 9.5 10x3/uL (4.8-10.8)
[2018-10-05 23:09] LABS: PLATELET COUNT 295 10x3/uL (130-400)
[2018-10-05 23:14] LABS: INR 1.88 (0.85-1.17); PROTIME 20.9 SECONDS (11.6-15.0)
[2018-10-05 23:19] LABS: ALBUMIN 3.1 g/dL (3.4-5.0); ANION GAP 14.2 mmol/L (8-16); BILIRUBIN - TOTAL 0.36 mg/dL (0.2-1.3); CALCIUM 8.8 mg/dL (8.5-10.1); CARBON DIOXIDE 26.6 mmol/L (21.0-32.0); CREATININE - SERUM 2.1 mg/dL (0.6-1.3); POTASSIUM - SERUM 3.8 mmol/L (3.5-5.1); PROTEIN - SERUM 7.3 g/dL (6.4-8.2)
[2018-10-05 23:28] LABS: THYROID STIMULATING HORMONE 1.38 uIU/mL (0.36-3.74)
[2018-10-06] VITALS: BP 110/69
[2018-10-06 00:44] VITALS: BP 124/45; BMI 25.2
[2018-10-06 04:00] VITALS: BP 104/50
[2018-10-06] MEDS ORDERED: ALDACTONE25 MG PO (04:48)
[2018-10-06] MEDS ORDERED: BAYER CHEWABLE81 MG PO (04:49)
[2018-10-06] MEDS ORDERED: K-DUR20 MEQ PO (04:50)
--- NOTE | 2018-10-06 05:30 | NUR ---
PAGEDeacon OLIVAS TO NOTIFY HER OF PT TRENDING DOWN B/P AND HR [place]. SHE STATED TO "GET THE BLOOD IN HIM" WILL CONTINUE TO MONITOR.
--- NOTE | 2018-10-06 07:32 | NUR ---
PT AWAKE AND ORIENTED AT THS TIME. FAMILY (/DAUGHTER) AT BEDSIDE. FAMILY INVOLVED IN CONVERSATION, NO QUESTIONS/CONCERNS VOICED AT THIS TIME. CL IN REACH, SRX2.
[2018-10-06 07:46] VITALS: BP 92/43
--- NOTE | 2018-10-06 09:56 | NUR ---
I have reviewed this patient and I concur with the Shift Assessment completed by the Licensed Practical Nurse today this shift.
[2018-10-06 10:02] LABS: BASOPHILS 0.3 % (0-2); EOSINOPHILS 2.2 % (0-7); HEMATOCRIT 30.9 % (42.0-54.0); HEMOGLOBIN 9.6 g/dL (13.5-17.5); IMMATURE GRANULOCYTES 0.9 % (0-5); LYMPHOCYTES 8.5 % (15-50); MCHC 31.1 g/dL (31.0-37.0); MEAN PLATELET VOLUME 8.3 fL (7.4-10.4); MONOCYTES 16.2 % (2-11); NEUTROPHILS 71.9 % (40-80); PLATELET COUNT 268 10x3/uL (130-400); RBC 3.56 10x6/uL (4.20-6.10); RDW 17.9 % (11.5-14.5); WBC 10.5 10x3/uL (4.8-10.8)
[2018-10-06 10:16] VITALS: Ht 175.3 cm; Wt 77.3 kg
[2018-10-06 10:17] LABS: % SATURATION 9 % (15-55); IRON 37 ug/dl (35-150); TOTAL IRON BIND CAPACITY 380 ug/dl (260-445); UNSAT IRON BIND CAPACITY 343 ug/dl (150-375)
[2018-10-06 10:22] LABS: MCV 86.8 fL (80.0-100.0)
[2018-10-06 10:29] LABS: ANION GAP 10.6 mmol/L (8-16); CALCIUM 8.7 mg/dL (8.5-10.1); CARBON DIOXIDE 28.9 mmol/L (21.0-32.0); CREATININE - SERUM 1.8 mg/dL (0.6-1.3)
[2018-10-06 10:30] LABS: POTASSIUM - SERUM 4.5 mmol/L (3.5-5.1)
--- NOTE | 2018-10-06 10:32 | NUR ---
PT ASLEEP, NAPPING BEFORE PROCEDURE. EARLIER ASSISTED WITH CHANGING INTO GOWN, PT NEEDED LITTLE TO NO ASSISTENCE. CL IN REACH, SRX2.
[2018-10-06 11:33] VITALS: BP 140/61
--- NOTE | 2018-10-06 14:28 | NUR ---
GI TEAM CALLED TO PRE-OP PT. PRE OP MEDICATIONS GIVEN. CONSENTS OBTAINED AND PLACED IN CHART. GI TEAM AT BEDSIDE DISCUSSING PROCEDURE WITH FAMILY AND READY TO TAKE PT. NO CURRENT NEEDS. WILL CTM.
--- NOTE | 2018-10-06 19:30 | NUR ---
REPORT RECIEVED AND ROUNDING COMPLETE, PT LAYING IN BED EYE OPEN. PT IS SHOWING NO S/SX OF DISTRESS. PT HAS FAMILY IN ROOM AT THIS TIME. PT STATES NO NEEDS. BED IN LOWEST POSITION AND CALL LIGHT WITHIN REACH.
[2018-10-06 20:00] VITALS: BP 108/44
[2018-10-07] VITALS: BP 117/50
[2018-10-07 00:31] VITALS: BP 117/50
--- NOTE | 2018-10-07 01:42 | NUR ---
I have reviewed this patient and I concur with the Shift Assessment completed by the Licensed Practical Nurse today this shift.
[2018-10-07 04:25] VITALS: BP 120/53; BP 127/91
[2018-10-07 04:53] LABS: BASOPHILS 0.4 % (0-2); HEMATOCRIT 32.4 % (42.0-54.0); HEMOGLOBIN 9.9 g/dL (13.5-17.5); IMMATURE GRANULOCYTES 1.1 % (0-5); LYMPHOCYTES 7.9 % (15-50); MCH 26.6 pg (26.0-34.0); MCHC 30.6 g/dL (31.0-37.0); MCV 87.1 fL (80.0-100.0); MEAN PLATELET VOLUME 8.7 fL (7.4-10.4); MONOCYTES 16.3 % (2-11); NEUTROPHILS 72.3 % (40-80); PLATELET COUNT 290 10x3/uL (130-400); RBC 3.72 10x6/uL (4.20-6.10); RDW 18.2 % (11.5-14.5); WBC 14.2 10x3/uL (4.8-10.8)
[2018-10-07 05:35] LABS: ANION GAP 13.1 mmol/L (8-16); BILIRUBIN - TOTAL 0.84 mg/dL (0.2-1.3); CALCIUM 8.6 mg/dL (8.5-10.1); CARBON DIOXIDE 26.8 mmol/L (21.0-32.0); CREATININE - SERUM 1.8 mg/dL (0.6-1.3); POTASSIUM - SERUM 4.9 mmol/L (3.5-5.1); PROTEIN - SERUM 7.3 g/dL (6.4-8.2)
--- NOTE | 2018-10-07 07:30 | NUR ---
PT AWAKE AND ORIENTED. NO FAMILY AT BEDSIDE AT THIS TIME. PT WOULD LIKE TO LEAVE TODAY, NO COMPLAINTS/CONCERNS VOICED AT THIS TIME. CL IN REACH, SRX2.
[2018-10-07 08:53] VITALS: BP 125/61
[2018-10-07] MEDS ORDERED: BUMEX2 MG PO ×2 (12:36→12:37)
[2018-10-07] MEDS ORDERED: Bumex PO (12:37)
--- NOTE | 2018-10-07 13:03 | NUR ---
I have reviewed this patient and I concur with the Shift Assessment completed by the Licensed Practical Nurse today this shift.
[2018-10-07 13:11] VITALS: BP 120/68
[2018-10-07 16:45] VITALS: BP 104/59
--- NOTE | 2018-10-07 17:57 | NUR ---
PT ESCORTED OUT VIA WHEELCHAIR TO FAMILY POV. NO COMPLAINTS/CONCERNS
--- NOTE | 2018-10-09 07:44 | MORECARE ---
CASE MANAGEMENT DISCHARGE SUMMARY PATIENT: ARMANDO CURRY UNIT: [id number] ADM DATE: 10/05/18 AGE: 77 : 38 SEX: M ROOM/BED: D.2103 AUTHOR: LENORA JO PHYSICIAN: REFERRING PHYSICIAN: SHIKHA VOSS MD DATE OF SERVICE: 10/09/18 Discharge Plan Patient Name: ARMANDO CURRY [facility] [facility] 1940 Planned Disposition: Home Anticipated Discharge Date: 10/07/18 Discharge Date: 10/07/2018 Expected LOS: 2 Initial Reviewer: [email or web address] Initial Review Date: 10/09/2018 Generated: 10/09/18 8:44 am Coverage Notice Reviewer: [email or web address] Aleyda De Leon Notice Issued Date-Time: 10/07/2018 13:05 Notice Type: IM Discharge Notice Notice Delivered To: Patient Relationship to Patient: Self Model Making Supervisor Name: Delivery Method: HAND - Hand Delivered Corrina Days: Prior Verbal Notification: Recipient Understood Notice: Yes Recipient Signature: Yes Med Rec Note Co-signed by Attending: Coverage Notice Comment: Patient Name: ARMANDO CURRY Page [phone] at 0744 All edits/amendments must be made on the electronic document DICTATION DATE: 10/09/1843 DEVELOPMENT SYSTEM EFFICIENCY MANAGER: CYNDI 10/09/18 0743 RPT#: [id number] DC DATE:10/07/18 STATUS: DIS IN [facility] [address] [place] [address] END OF REPORT
--- NOTE | 2018-10-09 13:34 | HP ---
PATIENT: ARMANDO POSADA MEDICAL RECORD: [id number] ACCOUNT: [id number] LOCATION:[address] : [birth year] ADMISSION DATE: 10/05/18 PCP: NAZ GREER DO HISTORY AND PHYSICAL EXAMINATION HISTORY OF PRESENT ILLNESS: Mr. Posada is a 77-year-old white male that presents to the [facility] today complaining of increasing shortness of breath and fatigue. He has a history of multiple medical problems of significance today as known. It is noted that he has hemoglobin of 8.3. He had normal hemoglobin of 13 back 3 months ago. He is strongly guaiac positive. He is on Eliquis for chronic atrial fibrillation. He is on a high dose of diuretic for pulmonary hypertension. He is followed currently by the [facility] for his pulmonary hypertension. He is going to be admitted at this time for further evaluation. PAST MEDICAL HISTORY: Significant for pulmonary hypertension, essential hypertension, peripheral vascular disease, diastolic heart failure, type 2 diabetes, chronic atrial fibrillation, and hyperlipidemia. PAST SURGICAL HISTORY: Include a total hip in 2015 on the left, total hip on the right in 2012, and cataract surgery in 2010. ALLERGIES: None known. HOME MEDICATIONS: Include, bumetanide 3 mg at a.m. and 2 at noon and 3:00 p.m., potassium 20 mEq daily, spironolactone 25 mg b.i.d., Zaleplon 5 gram capsule, metoprolol ER 50 mg once a day, metformin 500 twice a day, prednisone 10 mg a day, Montelukast 10 mg a day, atorvastatin 80 mg a day, and Eliquis 5 mg b.i.d. FAMILY HISTORY: Noncontributory. SOCIAL HISTORY: The patient is . He is retired. His is scheduled to have open heart surgery at the [facility] on Tuesday. REVIEW OF SYSTEMS: Denies fever, denies chest pain. Complains of increasing shortness of breath, muscle weakness, has some edema, decrease in appetite. Denies any gross rectal or any obvious bleeding from the rectum or urine. PHYSICAL EXAMINATION: GENERAL: Pleasant, cooperative, pale in appearance. HEART: Irregularly irregular with a slightly low rate. LUNGS: Clear. ABDOMEN: Soft, no rebound or guarding. IMPRESSION: 1. Severe iron deficiency anemia. 2. Chronic anticoagulation secondary to chronic atrial fibrillation. 3. Pulmonary hypertension on high dose of diuretics. 4. Chronic renal insufficiency. 5. Type 2 diabetes. 6. Hypertension. 7. Peripheral vascular disease. 8. Diastolic heart failure. PLAN: Hold Eliquis for now. Start a Protonix drip. GI consult. Serial H and HISTORY AND PHYSICAL [id number] ARMANDO POSADA Hs. See orders for rest of plan. TRANSINT:[id number] Voice Confirmation ID: [id number] DOCUMENT ID: [id number] NAZ GREER DO at 1334 CC: [id number] DICTATION DATE: 10/05/181833 BEVERAGE STEWARD: 10/05/188 DIS IN 10/07/18 [address] [place] [address]
== END 2018-10-07 17:58 | disposition home or self-care (01) | DRG 377 ==
LOC: D.M2 18:46
PROVIDERS: Internal Medicine Gastroenterology; ADMIT Family Medicine; ATTEND Family Medicine
PROC: 0DB68ZX Excision of Stomach, Via Natural or Artificial Opening Endoscopic, Diagnostic (ICD-10-PCS; principal; 2018-10-06 14:30)
DX: K29.01 Acute gastritis with bleeding (principal); I50.33 Acute on chronic diastolic (congestive) heart failure; I13.0 Hypertensive heart and chronic kidney disease with heart failure and stage 1 through stage 4 chronic kidney disease, or unspecified chronic kidney disease; D50.9 Iron deficiency anemia, unspecified; I48.2 Chronic atrial fibrillation; Z79.01 Long term (current) use of anticoagulants; I27.20 Pulmonary hypertension, unspecified; E11.22 Type 2 diabetes mellitus with diabetic chronic kidney disease; N18.9 Chronic kidney disease, unspecified; K21.0 Gastro-esophageal reflux disease with esophagitis

== ENCOUNTER 2019-03-19 10:47 | Day surgery (SDC) | payer MEDICARE, BC ==
[~2019-03-19] VITALS: Ht 175.3 cm; Wt 80.5 kg
[~2019-03-19 10:47] MED LIST changes: +ALDACTONE25 MG PO; +BUMEX2 MG PO; +Bumex PO; +K-DUR20 MEQ PO
[2019-03-19 11:12] LABS: HEMATOCRIT 34.6 % (42.0-54.0); HEMOGLOBIN 10.3 g/dL (13.5-17.5); MCH 28.5 pg (26.0-34.0); MCHC 29.8 g/dL (31.0-37.0); MCV 95.6 fL (80.0-100.0); MEAN PLATELET VOLUME 8.3 fL (7.4-10.4); RBC 3.62 10x6/uL (4.20-6.10); RDW 15.7 % (11.5-14.5); WBC 8.9 10x3/uL (4.8-10.8)
[2019-03-19 11:19] LABS: ANION GAP 13.3 mmol/L (8-16); CALCIUM 9.1 mg/dL (8.5-10.1); CARBON DIOXIDE 26.5 mmol/L (21.0-32.0); CREATININE - SERUM 1.4 mg/dL (0.6-1.3); POTASSIUM - SERUM 4.8 mmol/L (3.5-5.1)
[2019-03-19 11:24] LABS: APTT 30.5 SECONDS (22.8-39.4); INR 1.49 (0.85-1.17); PROTIME 17.4 SECONDS (11.6-15.0)
[2019-03-19] MEDS ORDERED: ELIQUIS2.5 MG PO (12:40)
[2019-03-19 12:45] VITALS: BP 134/66; Ht 175.3 cm; Wt 80.5 kg
--- NOTE | 2019-03-19 15:08 | NUR ---
DC INSTRUCTIONS GIVEN TO PT/FAMILY. STATE UNDERSTANDING. DC'D IV CATH FULLY INTACT.
--- NOTE | 2019-03-19 15:46 | NUR ---
PT LEFT UNIT VIA WC AT 1541
--- NOTE | 2019-03-28 07:36 | OP ---
PATIENT NAME: ARMANDO CURRY MEDICAL RECORD: [id number] :36 LOCATION:[facility] ADMISSION DATE: SURGEON: CASSANDRA RHODES DO DATE OF OPERATION: 03/19/2019 PROCEDURE: Colonoscopy with polypectomy. INDICATIONS FOR PROCEDURE: Anemia and positive stool guaiac. SCOPE: Olympus video pediatric colonoscope. MEDICATIONS: Propofol 620 mg IV per anesthesia. WITHDRAWAL TIME: 55 minutes. ESTIMATED BLOOD LOSS: Less than 3 mL. COMPLICATIONS: None immediate. FINDINGS: Informed consent was given. The patient was made comfortable with the above medication. After reaching an adequate level of sedation by slow IV push, the patient was placed on his left side. A digital rectal examination was performed and it was normal. The endoscope was advanced under direct visualization through the rectum to the cecum, confirmed by the presence of the appendiceal orifice and ileocecal valve. The endoscope was slowly withdrawn and mucosa was carefully examined. The prep quality was good. There were multiple polyps visualized on today's examination. The first was in the cecum. It was a benign appearing sessile polyp, which measured approximately 3-4 mm in diameter. It was removed using hot forceps. In the ascending colon at approximately 80 cm was a large mixed polyp that measured approximately 2.5 to 3 cm in size. It had some concerning features including a slightly ulcerated depressed center that was somewhat oozing blood prior to any biopsies. There appeared to be some possible wall invasion with indentation of the polyp toward the wall of the colon as well. Multiple cold forceps biopsies were taken and Echo ink tattoo was placed at the level of the polyp for further interventions as indicated. In the transverse colon and descending colon, there were approximately 10 polyps between the 2 sites. These polyps were all sessile and broad base. They ranged in size from 5 mm-2.5 cm in size. They were all removed using endoscopic mucosal resection technique with injection of Eleview for a cushion followed by snare polypectomy. Two of these polyps required endoclipping for hemostasis status post polypectomy. In the sigmoid colon, there was another large broad-based sessile polyp, which measured approximately 1 cm in size. It was removed using a hot snare followed by endoclipping times 1 for hemostasis. Retroflexion was performed in the rectum with visualization of grade I internal hemorrhoids without bleeding. The endoscope was withdrawn from the patient. The patient tolerated the procedure well and there were no immediate complications. IMPRESSION: 1. Multiple polyps as described above, removed using a combination of EMR technique, hot snare, and hot forceps. A tattoo injection was also performed. 2. Grade I internal hemorrhoids without bleeding. PLAN AND RECOMMENDATIONS: 1. Discharge home when recovery parameters are met. OPERATIVE REPORT [id number] ARMANDO CURRY 2. Follow up biopsy specimen results. 3. High fiber diet. 4. Continue current medications. 5. Resume Eliquis in 48 hours to 5 days due to high risk of bleeding, status post polypectomy. 6. Further interventions will be dependent on results of biopsies from the ascending colon, polyp. At this time, I favor referral to Dr. Lobato for consideration of polypectomy and APC versus hemicolectomy if there is high-grade dysplasia or cancerous cells within the biopsies taken today. 7. Recall colonoscopy will be dependent on above results and further intervention. TRANSINT:[id number] Voice Confirmation ID: [id number] DOCUMENT ID: [id number] CASSANDRA RHODES DO at 0736 CC: [id number] DICTATION DATE: 03/19/19 1435 FOUNDATION RELATIONS MANAGER: 03/19/19 1552 [facility] 03/19/19 [facility] [address] [place] [address]
== END 2019-03-19 15:41 | disposition home or self-care (01) ==
LOC: D.OPS 10:47
PROVIDERS: Anesthesiology; ATTEND Internal Medicine Gastroenterology
DX: D64.9 Anemia, unspecified (principal); K63.5 Polyp of colon; K64.8 Other hemorrhoids

== ENCOUNTER 2019-07-17 10:30 | Day surgery (SDC) | payer MEDICARE, BC ==
[~2019-07-17] VITALS: Ht 177.8 cm; Wt 90.9 kg
[2019-07-17 10:53] LABS: BASOPHILS 0.3 % (0-2); EOSINOPHILS 1.7 % (0-7); HEMOGLOBIN 12.1 g/dL (13.5-17.5); IMMATURE GRANULOCYTES 0.5 % (0-5); LYMPHOCYTES 8.9 % (15-50); MCH 30.6 pg (26.0-34.0); MCHC 31.8 g/dL (31.0-37.0); MCV 96.2 fL (80.0-100.0); MEAN PLATELET VOLUME 9.3 fL (7.4-10.4); MONOCYTES 12.1 % (2-11); NEUTROPHILS 76.5 % (40-80); PLATELET COUNT 216 10x3/uL (130-400); RBC 3.95 10x6/uL (4.20-6.10); RDW 15.3 % (11.5-14.5); WBC 11.2 10x3/uL (4.8-10.8)
[2019-07-17 11:06] LABS: APTT 30.2 SECONDS (22.8-39.4); INR 1.41 (0.85-1.17); PROTIME 17.1 SECONDS (11.6-15.0)
[2019-07-17 11:11] LABS: ALBUMIN 3.4 g/dL (3.4-5.0); ANION GAP 11.4 mmol/L (8-16); BILIRUBIN - TOTAL 0.97 mg/dL (0.2-1.3); CALCIUM 8.9 mg/dL (8.5-10.1); CARBON DIOXIDE 27.8 mmol/L (21.0-32.0); CREATININE - SERUM 1.4 mg/dL (0.6-1.3); POTASSIUM - SERUM 4.2 mmol/L (3.5-5.1); PROTEIN - SERUM 7.9 g/dL (6.4-8.2)
[2019-07-17 11:36] VITALS: BP 142/78; Ht 177.8 cm; Wt 90.9 kg
--- NOTE | 2019-07-17 17:09 | NUR ---
5588 COLONOSCOPY WITH ARGON COMPLETED. MULTIPLE POLYPS REMOVED. AWAKE AND DOING WELL ON ROOM AIR. TAKEN BACK TO ROOM WITH . REPORT GIVEN TO DICK CLINE RN.
--- NOTE | 2019-07-17 17:20 | NUR ---
1655 NAUSEA WITH DRY HEAVING, COOL CLOTH TO FACE BASIN PROVIDED. 1700 ZOFRAN GIVEN EMAR 1705 PORT XRAY DONE, STATES NAUSEA HAS IMPROVED
--- NOTE | 2019-07-17 17:36 | NUR ---
1730 DR. WILL ESCOTO. 1735 CO ADA DIET SERVED. PT. DENIES NAUSEA. AT SIDE.
--- NOTE | 2019-07-19 17:21 | HP ---
PATIENT: ARMANDO CURRY MEDICAL RECORD: [id number] ACCOUNT: [id number] LOCATION:[facility] : 36 ADMISSION DATE: 07/17/19 PCP: NAZ GREER DO HISTORY AND PHYSICAL EXAMINATION HISTORY OF PRESENT ILLNESS: The patient has history of colon polyps. He has recently undergone a Watchman procedure for atrial fibrillation that was successful. The patient has had a history of ulcerated, worrisome polypoid mass at 80 cm in the ascending colon and this has been tattooed. Pathologically this was a tubular adenoma with low-grade dysplasia. The patient also had a tubular adenoma with high-grade dysplasia in the transverse or descending colon and this was removed. His colonoscopy was delayed several months because he was going to undergo this Watchman procedure. He has been on anticoagulation, but has been off for several days, but will need to restart it soon. PAST MEDICAL AND SURGICAL HISTORY: Hypertension, diastolic dysfunction, atrial fibrillation, CABG times 3, peripheral vascular disease, also non-insulin dependent diabetes mellitus. HOME MEDICINES: Reviewed. ALLERGIES: No known drug allergies. PHYSICAL EXAMINATION: GENERAL: The patient does not appear acutely ill. He does not appear chronically ill. VITAL SIGNS: Reviewed. EARS: External ears appear normal. EYES: Extraocular movements are intact. NECK: Trachea is midline. CHEST: No intercostal retractions. PULMONARY: Nonlabored and no stridor. IMPRESSION: 1. Worrisome ascending colon polyp, which was tattooed. 2. Another tubular adenoma either in the distal transverse colon or the descending colon, which had been removed as well and this actually had a high-grade dysplasia. PLAN: Colonoscopy, polypectomy, and biopsies. TRANSINT:[id number] Voice Confirmation ID: [id number] DOCUMENT ID: [id number] MARY JO SOLIS MD at 1721 CC: NAZ GREER, ERNESTINE RIBERA MD and CASSANDRA RHODES DO [id number] DICTATION DATE: 07/17/19 1537 TIE CARRIER: 07/17/19 1629 [facility] 07/17/19 [place] [address]
--- NOTE | 2019-07-19 17:21 | OP ---
PATIENT NAME: ARMANDO CURRY MEDICAL RECORD: [id number] :36 LOCATION:D.OPS ADMISSION DATE: SURGEON: MARY JO SOLIS MD DATE OF OPERATION: 07/17/2019 PREOPERATIVE DIAGNOSIS: History of complex colon polyps. POSTOPERATIVE DIAGNOSIS: 1. History of complex colon polyps. 2. With several other small polyps. PROCEDURES: 1. Total colonoscopy to cecum. 2. Endoscopic mucosal resection, polypectomy, an ascending colon polyp that had been tattooed and 3 endoscopic clips were used for tissue reinforcement. 3. Hot biopsy forceps polypectomies times 3. 4. Endoscopic ablation of 7 small sessile colorectal polyps. SURGEON: Mary Jo Solis MD NUTRITION AIDE: None. BLOOD LOSS: Minimal. ANESTHESIA: IV sedation. COMPLICATIONS: None. PROCEDURE IN DETAIL: The risks, possible complications, and alternatives to the procedure were explained to the patient. He elects to proceed. The discussion specifically included, but was not limited to, bleeding requiring emergency reoperation, infection, endoscopic perforation. ENDOSCOPIC COURSE: The patient was conveyed to the endoscopy suite electively on 07/17/2019. IV sedation was induced by the anesthesia staff. The patient was placed in the Gamble position. A digital rectal examination was performed. A colonoscope was inserted through the anus. It was easily advanced to the cecum. The prep was adequate. I slowly withdrew the endoscope. The flow pullback was greater than a 30-minute pullback. I utilized normal imaging as well as narrow band imaging. In the ascending colon, between 2 tattoos, I noted a very large polyp with a central umbilication which is a worrisome sign. I elected to remove this polyp utilizing endoscopic mucosal resection technique. I advanced a sclerotherapy needle. I punctured through the mucosa underneath the polyp at 2 sites and injected epinephrine for a post-procedural hemostasis. I then withdrew the sclerotherapy needle. We then loaded some Eleview onto the sclerotherapy needle and injected the Eleview submucosally as well. I removed the sclerotherapy needle. I then advanced an endoscopic snare. I was able to snare around the polyp and remove a greater than 95% on it. The polyp was placed within a bag retrieval device and was withdrawn out through the anus. I then readvanced the endoscope to the ascending colon. There was little bit of polypoid tissue and this was at the base of the polyp and this was removed OPERATIVE REPORT [id number] ANTOINETTEARMANDO utilizing the cold endoscopic biopsy forceps and placed in the second container. Some tiny residual bit of polypoid tissue was removed utilizing ablation through the argon plasma metalworking specialist. I then advanced and deployed 4 endoscopic clips for post-procedural tissue reinforcement. One of these did not deploy normally and was lost. The other 3 did maintain their shape and were successfully deployed to be therapeutic. I then slowly withdrew the endoscope. Three sessile polyps, all less than 1.2 cm in size were removed in their entireties utilizing the hot biopsy forceps polypectomy technique. There were some other minute polyps which did not require biopsy. They were all less than 5 mm polyps and were all sessile and these were ablated utilizing the argon plasma metalworking specialist with right colon setting in the forced mode. A retroflexed view was obtained in the rectum. I then unretroflexed the scope and removed it under direct vision. Specifically, I did not see any regrowth of the polyp that had been removed and a focus of high-grade dysplasia. The post-procedural chest x-ray did not reveal any pneumoperitoneum; however, there is likely artifact on the right side. There may be a left basilar process as well. I am waiting on the reading from the radiologist. If indeed they agree that there is a basal process in the left base, it may be worthwhile to obtain a CT scan of the chest to rule out a malignancy. TRANSINT:[id number] Voice Confirmation ID: [id number] DOCUMENT ID: [id number] MARY JO SOLIS MD at 1723 CC: NAZ GREER PAIXAO, ANDRE MD and CASSANDRA RHODES DO [id number] DICTATION DATE: 07/17/19 1746 PRESCHOOL TEACHER'S ASSISTANT: 07/18/19 0556 [facility] 07/17/19 [facility] [address] [place] [address]
== END 2019-07-17 18:10 | disposition home or self-care (01) ==
LOC: D.OPS 10:30
PROVIDERS: Anesthesiology; ATTEND Surgery
DX: Z86.010 Personal history of colon polyps (principal); E11.9 Type 2 diabetes mellitus without complications; Z79.84 Long term (current) use of oral hypoglycemic drugs; D12.6 Benign neoplasm of colon, unspecified; I10 Essential (primary) hypertension; I48.91 Unspecified atrial fibrillation; Z95.1 Presence of aortocoronary bypass graft

== ENCOUNTER 2019-07-18 01:33 | Inpatient (IN) | payer MEDICARE, BC ==
[2019-07-18] VITALS (36 sets, daily range): BP systolic 65–150; BP diastolic 21–100; Ht 177.8 cm; Wt 105.2 kg
[~2019-07-18] VITALS: Ht 177.8 cm; Wt 105.2 kg
[~2019-07-18 01:33] MED LIST changes: +ASPIRIN81 MG PO; +FERROUS SULFAT325 MG PO
[2019-07-18 02:05] LABS: BASOPHILS 0.2 % (0-2); EOSINOPHILS 0.7 % (0-7); IMMATURE GRANULOCYTES 0.7 % (0-5); LYMPHOCYTES 8.6 % (15-50); MCH 29.1 pg (26.0-34.0); MCHC 29.6 g/dL (31.0-37.0); MEAN PLATELET VOLUME 8.6 fL (7.4-10.4); NEUTROPHILS 80.8 % (40-80); PLATELET COUNT 202 10x3/uL (130-400); RDW 15.5 % (11.5-14.5); WBC 13.3 10x3/uL (4.8-10.8)
[2019-07-18 02:06] LABS: MCV 98.2 fL (80.0-100.0); RBC 2.75 10x6/uL (4.20-6.10)
[2019-07-18 02:12] LABS: APTT 30.2 SECONDS (22.8-39.4); INR 1.69 (0.85-1.17); PROTIME 19.7 SECONDS (11.6-15.0)
[2019-07-18 02:25] LABS: ANION GAP 12.6 mmol/L (8-16); CALCIUM 7.5 mg/dL (8.5-10.1); CARBON DIOXIDE 22.5 mmol/L (21.0-32.0); CREATININE - SERUM 1.7 mg/dL (0.6-1.3); POTASSIUM - SERUM 4.1 mmol/L (3.5-5.1)
[2019-07-18 02:47] LABS: BILIRUBIN - TOTAL 0.53 mg/dL (0.2-1.3); MAGNESIUM - SERUM 2.2 mg/dL (1.8-2.4)
[2019-07-18 02:52] LABS: ALBUMIN 2.4 g/dL (3.4-5.0); PROTEIN - SERUM 5.6 g/dL (6.4-8.2)
--- NOTE | 2019-07-18 03:00 | NUR ---
Received pt to room 2304 from the ED via stretcher. Pt had bloody stool present and was cleaned up prior to transferring to bed. Attached pt to monitors and all monitors are on and working correctly. Admission information obtained from pt and . No s/s of distress noted at this time. Will continue to monitor.
[2019-07-18 03:01] LABS: TROPONIN-I 0.073 ng/mL (0.000-0.060)
--- NOTE | 2019-07-18 05:00 | NUR ---
Pt informed me that he needd to be cleaned up again that he had another BM. Upon pulling back the covers it was noted that he had had a very large bright red bloody stool with copious amounts of large half dollar size clots soaking through several pads and all of the bedding. Pt cleaned up and bedding changed. Currently tranfusing third unit of PRBC's at this time, VSS other then BP being low-see flowsheet for details. No s/s of distress noted at this time. Will continue to monitor.
--- NOTE | 2019-07-18 06:30 | NUR ---
UPDATE CALLED TO DR. SOLIS, NEW ORDERS RECIEVED,
[2019-07-18 06:43] LABS: HEMATOCRIT 33.4 % (42.0-54.0); HEMOGLOBIN 10.8 g/dL (13.5-17.5)
--- NOTE | 2019-07-18 07:15 | NUR ---
REPORT RECEIVED. PT IN SURGERY AT THIS TIME.
--- NOTE | 2019-07-18 07:19 | NUR ---
0718- IN [facility] NOTIFIED VIA PHONE OF START TIME.
--- NOTE | 2019-07-18 07:37 | NUR ---
0737-INJECT 10CC OF 0.1MG/ML VIA INJECTOR NEEDLE INTO COLON.
--- NOTE | 2019-07-18 08:32 | NUR ---
LEVOPHED 5MCG/MIN
--- NOTE | 2019-07-18 08:45 | NUR ---
CARDIOLOGY CLINIC CALLED FOR NEW CONSULT. SPOKE WITH DR NEGRETE'S NURSE. AWARE PT HAD EKG CHANGES DURING PROCEDURE. PT STILL CURRENTLY IN RECOVERY.
--- NOTE | 2019-07-18 08:58 | NUR ---
PT RECEIVED FROM RECOVERY. 77 HR, 98% ON 2L, BP 147/63 WITH MAP 91. ALERT AND ORIENTED. REQUESTING WATER. NO CURRENT BM NOTED. MONDRAGON IN PLACE. IV TO RIGHT WRIST AND LEFT AC. LEVOPHED AT 5 MCG. WILL CONTINUE TO MONITOR.
[2019-07-18 10:05] LABS: HEMOGLOBIN 9.7 g/dL (13.5-17.5)
--- NOTE | 2019-07-18 12:46 | NUR ---
LEVOPHED WEANED OFF. CURRENT BP 113/61 WITH MAP OF 72. PT RESTING QUIETLY. WILL CONTINUE TO MONITOR.
--- NOTE | 2019-07-18 14:29 | MORECARE ---
CASE MANAGEMENT DISCHARGE SUMMARY PATIENT: ARMANDO CURRY UNIT: [id number] ADM DATE: 07/18/19 AGE: 78 : 38 SEX: M ROOM/BED: D.2304 AUTHOR: LENORA JO PHYSICIAN: REFERRING PHYSICIAN: MARY JO SOLIS MD DATE OF SERVICE: 07/18/19 Discharge Plan Patient Name: ARMANDO CURRY [facility] [facility] 1940 Planned Disposition: Home Anticipated Discharge Date: Discharge Date: Expected LOS: Initial Reviewer: [email or web address] Initial Review Date: 07/18/2019 Generated: 07/18/19 3:29 pm DCPIA - Discharge Planning Initial Assessment Updated by [email or web address]: Maria Elena Vega on 07/18/19 2:27 pm * Is the patient Alert and Oriented? Yes * How many steps to enter\exit or inside your home? * PCP [facility] * Pharmacy [facility] * Preadmission Environment Home with Family * ADLs Independent * Other Equipment HOME/ PORTABLE 02 - NOT USING, WALKER -NOT USING * List name and contact numbers for known caregivers / representatives who currently or will assist patient after discharge: JUAN CURRY - SPOUSE - [phone] * Verbal permission to speak to the caregivers and representatives has been obtained from the patient. Yes * Community resources currently utilized None * Additional services required to return to the preadmission environment? No * Can the patient safely return to the preadmission environment? Yes * Has this patient been hospitalized within the prior 30 days at any hospital? No Patient Name: ARMANDO CURRY Page [phone] at 1429 All edits/amendments must be made on the electronic document DICTATION DATE: 07/18/19 142 LAMP SHADES SUPERVISOR: CYNDI 07/18/19 1429 RPT#: [id number] DC DATE: STATUS: ADM IN [facility] [address] [place] [address] END OF REPORT
--- NOTE | 2019-07-18 15:00 | NUR ---
VSS. NO COMPLAINTS OR NEEDS AT THIS TIME.
[2019-07-18 16:35] LABS: BASOPHILS 0.3 % (0-2); EOSINOPHILS 1.1 % (0-7); IMMATURE GRANULOCYTES 0.7 % (0-5); LYMPHOCYTES 10.5 % (15-50); MCH 29.9 pg (26.0-34.0); MCHC 32.6 g/dL (31.0-37.0); MEAN PLATELET VOLUME 8.8 fL (7.4-10.4); MONOCYTES 14.4 % (2-11); RBC 2.81 10x6/uL (4.20-6.10); RDW 16.7 % (11.5-14.5); WBC 11.4 10x3/uL (4.8-10.8)
[2019-07-18 17:01] LABS: HEMATOCRIT 25.8 % (42.0-54.0); HEMOGLOBIN 8.4 g/dL (13.5-17.5); MCV 91.8 fL (80.0-100.0); PLATELET COUNT 149 10x3/uL (130-400)
--- NOTE | 2019-07-18 17:54 | NUR ---
PT RESTING QUIETLY. VSS. NO COMPLAINTS OR NEEDS AT THIS TIME. WILL CONTINUE TO MONITOR.
--- NOTE | 2019-07-18 19:00 | NUR ---
Report received from off going nurse. Pt is laying in bed resting at this time. No needs voiced. No s/s of distress noted. Will continue to monitor.
--- NOTE | 2019-07-18 21:00 | NUR ---
Pt is laying in bed with eyes open at this time. is present at bedside. No s/s of distress noted. Will continue to monior.
--- NOTE | 2019-07-18 23:00 | NUR ---
Reassessment completed, see flowsheet for details. Pt is laying in bed with eyes closed. No s/s of distress noted. Will continue to monitor.
[2019-07-19] VITALS (20 sets, daily range): BP systolic 104–160; BP diastolic 48–87
--- NOTE | 2019-07-19 01:00 | NUR ---
PT is laying in bed with eyes closed. NO needs voiced at this time. No s/s of distress noted. Will continue to monitor.
--- NOTE | 2019-07-19 03:00 | NUR ---
Reassessment completed, see flowsheet for details. Pt is laying in bed with eyes closed at this time. NO needs voiced. No s/s of distress. Will continue to monitor.
--- NOTE | 2019-07-19 07:30 | NUR ---
REPORT RECEIVED. PT ALERT. IV TO RIGHT WRIST WITH NORMAL SALINE INFUSING. MONDRAGON IN PLACE. PT ON CLEAR LIQUID DIET. ASSESSMENT DONE. VSS. WILL CONTINUE TO MONITOR.
[2019-07-19 10:09] LABS: BASOPHILS 0.2 % (0-2); EOSINOPHILS 3.2 % (0-7); IMMATURE GRANULOCYTES 0.5 % (0-5); MCH 29.9 pg (26.0-34.0); MCHC 31.9 g/dL (31.0-37.0); MEAN PLATELET VOLUME 8.7 fL (7.4-10.4); MONOCYTES 15.7 % (2-11); NEUTROPHILS 70.4 % (40-80); PLATELET COUNT 129 10x3/uL (130-400); RBC 2.41 10x6/uL (4.20-6.10); WBC 8.1 10x3/uL (4.8-10.8)
[2019-07-19 10:10] LABS: HEMATOCRIT 22.6 % (42.0-54.0); HEMOGLOBIN 7.2 g/dL (13.5-17.5); MCV 93.8 fL (80.0-100.0)
--- NOTE | 2019-07-19 10:13 | NUR ---
PAGED DR SOLIS.
[2019-07-19 10:40] LABS: ANION GAP 10.3 mmol/L (8-16); CARBON DIOXIDE 22.8 mmol/L (21.0-32.0); CREATININE - SERUM 1.3 mg/dL (0.6-1.3); POTASSIUM - SERUM 4.1 mmol/L (3.5-5.1)
[2019-07-19 10:44] LABS: CALCIUM 6.9 mg/dL (8.5-10.1)
--- NOTE | 2019-07-19 11:11 | NUR ---
UNIT OF BLOOD INITIATED.
--- NOTE | 2019-07-19 15:13 | NUR ---
2ND UNIT OF BLOOD TRANSFUSING.
--- NOTE | 2019-07-19 16:48 | EC ---
PATIENT:ARMANDO CURRY DATE OF SERVICE: 07/18/19 SEX: M MEDICAL RECORD: [id number] DATE OF : 36 LOCATION:[facility] AGE OF PATIENT: 78 ADMISSION DATE: 07/18/19 REFERRING PHYSICIAN: INTERPRETING PHYSICIAN: WAYNE FERRARA MD ECHOCARDIOGRAM REPORT ECHO CHARGES 4 ECHO COMPLETE Date: 07/18/19 CLINICAL DIAGNOSIS: CHF ECHOCARDIOGRAPHIC MEASUREMENTS (adult normal given) AC root (d.<3.7cm) 3.8 cm LV Septum d (<1.2 cm> 1.2 cm Valve Excursion 1.2 cm LV Septum (systole) 1.8 cm Left Atria (s.<4.0cm> 5.2 cm LVPW d(<1.2cm) 1.3 cm RV (d.<2.3cm) 2.7 cm LVPW (sytole) 1.8 cm LV diastole(<5.6CM) 5.9 cm MV E-F(>70mm/sec) cm LV systole 3.7 cm LVOT Diameter 2.1 cm MV exc.(>10mm) cm Est.ejection fraction (50-75%) % DOPPLER: LVIT cm/sec A cm/sec E 165 cm/sec LA cm/sec RVSP 40.0 mmHg LVOT 122 cm/sec AOP1/2T m/s Asc. Ao 217 cm/sec RVOT 84.0 cm/sec RA cm/sec PA 102 cm/sec AV Gradient Peak 19.0 mmHg AV Mean 11.9 mmHg AV Area 1.6 cm MV Gradient Peak 16.0 mmHg MV Mean 4.9 mmHg MV Area 1.7 cm COMMENTS: Ocularist: 1 NASIR WHITEROCKS Technical Artist: 1 Dr. Ferrara TAPE# PACS Pericardial Effusion N DATE OF SERVICE: FINDINGS: 1. Left ventricular chamber size is mildly dilated. Left ventricular systolic function is preserved at 55% to 60%. 2. Left atrium is enlarged at 5.2 cm. Right atrium and right ventricular chamber sizes are as well moderately dilated. 3. Valvular structures: Aortic valve demonstrates mild calcific aortic stenosis. The remaining valvular structures have normal structure and motion. 4. Doppler interrogation elsewise reveals mild mitral regurgitation, moderate ECHOCARDIOGRAM REPORT [id number] ARMANDO CURRY tricuspid regurgitation, no other valvular insufficiency or stenosis. Pulmonary systolic pressure is estimated at 40 mmHg. 5. No evidence of pericardial effusion or left ventricular thrombus. TRANSINT:[id number] Voice Confirmation ID: [id number] DOCUMENT ID: [id number] WAYNE FERRARA MD at 1648 CC: [id number] DICTATION DATE: 07/19/19 0749 DRILLING FOREMAN: 07/19/19 [address] [facility] [address] [id number]
--- NOTE | 2019-07-19 17:21 | OP ---
PATIENT NAME: ARMANDO CURRY MEDICAL RECORD: [id number] :36 LOCATION:D.[facility] D.2304 ADMISSION DATE:07/18/19 SURGEON: MARY JO SOLIS MD DATE OF OPERATION: 07/18/2019 PREOPERATIVE DIAGNOSES: 1. Post-polypectomy lower gastrointestinal bleeding. 2. Hemorrhagic shock. 3. Acute blood loss anemia requiring transfusions. POSTOPERATIVE DIAGNOSES: 1. Post-polypectomy lower gastrointestinal bleeding. 2. Hemorrhagic shock. 3. Acute blood loss anemia requiring transfusions. PROCEDURES: 1. Total colonoscopy to cecum. 2. Control of hemorrhage with 3 endoscopic clips, submucosal epinephrine injection, as well as the gold probe. SURGEON: Mary Jo Solis MD TIRE MECHANIC: None. BLOOD LOSS: New blood loss is about 100 cc during the procedure. COMPLICATIONS: None. The risks, possible complications and alternatives to the procedure were explained. A consent form was signed. I received a call earlier this morning that the patient had lower GI bleeding. He underwent blood transfusions. I did not hear from the Emergency Room physician until later in the morning. I received a call from the nurses in the ICU. They state that the patient just had two large bloody bowel movement and had pressure with systolic in the 60s. I told him them to call in the GI crew. I spoke with the Emergency Room physician who called me. He states that it appeared earlier that the patient's bleeding has stopped after meropenem as well as TXA. He states that he just heard the patient re-bled in the ICU. I told him that I had received that information as well and I was on my way in for hemorrhage control. OPERATIVE COURSE: The patient was conveyed to the operating room emergently and this was to protect his airway. General anesthesia was induced by the anesthesia staff. The patient was placed in the Gamble position. A digital rectal examination was performed. A colonoscope was inserted through the anus. It was easily advanced to the cecum. Only one polypectomy site was bleeding. This was the largest polypectomy site and this was over in the ascending colon. There was a clot of blood at the polypectomy site and within this clot of blood was ongoing hemorrhage. I washed away as much of the clot as I could. I identified the point of hemorrhage. I advanced a sclerotherapy needle. A submucosal injection of epinephrine was performed. This really did not do very much for hemorrhage control. I irrigated some more. Two endoscopic clips were placed. The bleeding slowed to some degree. The gold probe was then utilized for cautery and hemorrhage control. This improved things so that there was just OPERATIVE REPORT [id number] ARMANDO CURRY trickle of blood coming out now. A final endoscopic clip was deployed and hemostasis was immediate. I watched for 5 minutes and we brought the blood pressure up to ensure that the patient was not going to rebleed once his blood pressure normalized. I saw no evidence of bleeding. The endoscope was then withdrawn under direct vision. The patient was then extubated and conveyed to post-anesthesia care unit where he was in stable condition. TRANSINT:[id number] Voice Confirmation ID: [id number] DOCUMENT ID: [id number] MARY JO SOLIS MD at 1721 CC: MESFIN MERA MD, NAZ GREER and BEN LANDIS MD [id number] DICTATION DATE: 07/18/19 0937 RAIL DOWELING MACHINE OPERATOR: 07/18/19 1239 ADM IN [place] [facility] [id number] [place] [address]
--- NOTE | 2019-07-19 17:25 | NUR ---
PT HAS SMALL INC EPISODE. CLEANED UP AND LINENS CHANGED. BLOOD DONE INFUSING. DINNER GIVEN TO PT.
--- NOTE | 2019-07-19 18:46 | NUR ---
DR WILL MARAVILLA. STATED TO STOP IV FLUIDS. TURNED FLUIDS OFF AND PT IS NOW SALINE LOC.
--- NOTE | 2019-07-19 19:35 | NUR ---
REPORT RECIEVED AND ROUNDING COMPLETE. PATIENT LAYING IN BED IN LOW FOWLERS POSITION. EYES CLOSED BREATHING EVEN AND UNLABORED. PATIENT IS WEARING NASAL CANNULA WITH 02 AT 2L. MATTHIASTENT HAS A RIGHT FOREARM PIV THAT IS SALINE LOCKED AT THIS TIME. PATIENT HAS MONDRAGON IN PLACE WITH CLEAR YELLOW URINE IN MONDRAGON BAG. BED IN LOWEST LOCKED POSITION AND CALL LIGHT WITHIN REACH.
--- NOTE | 2019-07-19 20:33 | NUR ---
CALLED [facility] TO [facility].
[2019-07-20 04:00] VITALS: BP 102/54
[2019-07-20 10:03] VITALS: BP 118/53
--- NOTE | 2019-07-20 12:01 | NUR ---
NUTRITION FOLLOW UP INTERVIEW: Met with patient this morning. He stated that his appetite has been good. Denied N/V/D/C and any new chewing/swallowing issues. Patient ate solid foods today after advancing from liquid diet. DIET: Diabetic Diet PO INTAKE: 100% x 1 WEIGHT: 231 lbs (07/19), 214 lbs (07/18) BM: Bloody Stools on (07/19) SIG MEDS: Pepcid, prednisone, Bumex SIG LABS: Ca- 6.9, Glucose- 131 Clinical Dietitian to continue following and monitoring patient DHS
[2019-07-20 12:40] VITALS: BP 105/59
[2019-07-20 18:09] VITALS: BP 123/56
[2019-07-20 20:30] VITALS: BP 138/51
--- NOTE | 2019-07-20 22:24 | NUR ---
PT STATES TOLD HIM HIS MONDRAGON CATHETER COULD BE REMOVED. CALLED THE STEREOTYPER HELPER MD, DR BUTTERFIELD. ORDER GIVEN TO REMOVE MONDRAGON. MONDRAGON REMOVED WITHOUT DIFFICULTY.
[2019-07-21 04:30] VITALS: BP 128/71
[2019-07-21 05:20] LABS: BASOPHILS 0.2 % (0-2); EOSINOPHILS 0.3 % (0-7); IMMATURE GRANULOCYTES 0.8 % (0-5); LYMPHOCYTES 8.4 % (15-50); MCH 29.9 pg (26.0-34.0); MCHC 32.4 g/dL (31.0-37.0); MCV 92.2 fL (80.0-100.0); MEAN PLATELET VOLUME 8.9 fL (7.4-10.4); MONOCYTES 9.4 % (2-11); NEUTROPHILS 80.9 % (40-80); RDW 16.6 % (11.5-14.5)
[2019-07-21 05:27] LABS: HEMATOCRIT 30.9 % (42.0-54.0); PLATELET COUNT 193 10x3/uL (130-400); RBC 3.35 10x6/uL (4.20-6.10); WBC 10.5 10x3/uL (4.8-10.8)
[2019-07-21 05:42] LABS: ANION GAP 14.8 mmol/L (8-16); CALCIUM 8.3 mg/dL (8.5-10.1); CARBON DIOXIDE 24.6 mmol/L (21.0-32.0); CREATININE - SERUM 1.5 mg/dL (0.6-1.3); POTASSIUM - SERUM 4.4 mmol/L (3.5-5.1)
--- NOTE | 2019-07-21 07:48 | NUR ---
RECIVED REPORT. PATIENT IS RESTING IN BED ON HIS BACK AT THIS TIME. AT BEDSIDE. REPORTS THAT HE HAS NOT HAD SWELLING LIKE THIS IN HIS LEFT ARM BEFORE.
[2019-07-21 08:21] VITALS: BP 117/64
[2019-07-21 11:22] VITALS: BP 104/45
--- NOTE | 2019-07-21 14:41 | NUR ---
PATIENT HAS A NEW ORDER FOR A DISCHARGE NOW.
--- NOTE | 2019-07-21 15:56 | MORECARE ---
CASE MANAGEMENT DISCHARGE SUMMARY PATIENT: ARMANDO CURRY UNIT: [id number] ADM DATE: 07/18/19 AGE: 78 : 38 SEX: M ROOM/BED: D.2109 AUTHOR: SANDRO,DOC PHYSICIAN: REFERRING PHYSICIAN: MARY JO SOLIS MD DATE OF SERVICE: 07/21/19 Discharge Plan Patient Name: ARMANDO CURRY Facility: [facility]:[place] : 1940 Planned Disposition: Home Anticipated Discharge Date: Discharge Date: Expected LOS: Initial Reviewer: [email or web address] Initial Review Date: 07/18/2019 Generated: 07/21/19 4:56 pm Comments DCP- Discharge Planning Updated by [email or web address]: Olga Hurtado on 07/21/19 2:[address] Patient Name: ARMANDO CURRY Encounter No: [id number] : 1940 Primary Insurance: MEDICARE A & B Anticipated DC Date: Planned Disposition: Home External Planned Provider: : DCP follow-up note: Patient and family in agreement with discharge plan. No changes to plan. IMM SIGNED. FAMILY HERE FOR TRANSPORT. Case management will follow and assist as needed. Olga Hurtado DCP- Discharge Planning Updated by [email or web address]: Maria Elena Vega on 07/18/19 1:[address] Patient Name: ARMANDO CURRY Admission Status: ER Accout number: [id number] Admission Date: 07-18-2019 : 1940 Admission Diagnosis: Attending: MARY JO SOLIS Current LOS: 1 Anticipated DC Date: Planned Disposition: Home Primary Insurance: MEDICARE A & B Discharge Planning Comments: CM met with patient at bedside after explaining CM role and obtaining verbal consent. Patient lives at home with his where he is independent with his care and plans to return there upon discharge. Patient feels this would be a safe discharge. CM discussed availability / needs of home health and medical equipment. Patient states that he has home 02 and portable but doesn't use it. Patient denies any discharge needs at this time. Patient states he will have his family drive him home upon discharge. CM will continue to follow and assist as needed with discharge planning / needs. Family Program Specialist: Maria Elena Vega DCPIA - Discharge Planning Initial Assessment Updated by [email or web address]: Maria Elena Vega on 07/18/19 2:27 pm * Is the patient Alert and Oriented? Yes * How many steps to enter\exit or inside your home? * PCP [facility] * [facility] * Preadmission Environment Home with Family * ADLs Independent * Other Equipment HOME/ PORTABLE 02 - NOT USING, WALKER -NOT USING * List name and contact numbers for known caregivers / representatives who currently or will assist patient after discharge: JUAN CURRY - [facility] - [phone] * Verbal permission to speak to the caregivers and representatives has been obtained from the patient. Yes * Community resources currently utilized None * Additional services required to return to the preadmission environment? No * Can the patient safely return to the preadmission environment? Yes * Has this patient been hospitalized within the prior 30 days at any hospital? No Coverage Notice Reviewer: [id number] Aleyda Hurtado Notice Issued Date-Time: 07/21/2019 15:47 Notice Type: IM Discharge Notice Notice Delivered To: Patient Relationship to Patient: Postal Support Employee Name: Delivery Method: HAND - Hand Delivered Corrina Days: Prior Verbal Notification: Recipient Understood Notice: Yes Recipient Signature: Yes Med Rec Note Co-signed by Attending: Coverage Notice Comment: Last DP export: 07/18/19 1:29 p Patient Name: ARMANDO CURRY Page 02010 at 1556 All edits/amendments must be made on the electronic document DICTATION DATE: 07/21/191555 MACHINE FEED OPERATOR: CYNDI 07/21/19 155 RPT#: [id number] DC DATE: STATUS: ADM IN [facility] [address] [place] [address] END OF REPORT
--- NOTE | 2019-07-21 16:51 | NUR ---
PATIENT HAS BEEN DISCHARGED. IV REMOVED WITH CATHETER INTACT. ALL PATIENT BELONGINGS WENT HOME WITH THE PATIENT. DISCHARGE TEACHING COMPLETE, AND PAPERS SIGNED. HE WENT DOWNSTAIRS BY WHEELCHAIR AND IS GOING HOME WITH HIS .
--- NOTE | 2019-07-23 08:59 | MORECARE ---
CASE MANAGEMENT DISCHARGE SUMMARY PATIENT: ARMANDO CURRY UNIT: [id number] ADM DATE: 07/18/19 AGE: 78 : 38 SEX: M ROOM/BED: D.2102 AUTHOR: SANDRO,DOC PHYSICIAN: REFERRING PHYSICIAN: MARY JO SOLIS MD DATE OF SERVICE: 07/23/19 Discharge Plan Patient Name: ARMANDO CURRY Facility: [facility]:[place] : 1940 Planned Disposition: Home Anticipated Discharge Date: 07/21/19 Discharge Date: 07/21/2019 Expected LOS: 3 Initial Reviewer: [email or web address] Initial Review Date: 07/18/2019 Generated: 07/23/19 9:58 am Comments DCP- Discharge Planning Updated by [email or web address]: Olga Hurtado on 07/21/19 2:[address] Patient Name: ARMANDO CURRY Encounter No: [id number] : 1940 Primary Insurance: MEDICARE A & B Anticipated DC Date: Planned Disposition: Home External Planned Provider: : DCP follow-up note: Patient and family in agreement with discharge plan. No changes to plan. IMM SIGNED. FAMILY HERE FOR TRANSPORT. Case management will follow and assist as needed. Olga Hurtado DCP- Discharge Planning Updated by [email or web address]: Maria Elena Vega on 07/18/19 1:[address] Patient Name: ARMANDO CURRY Admission Status: ER Accout number: [id number] Admission Date: 07-18-2019 : 1940 Admission Diagnosis: Attending: MARY JO SOLIS Current LOS: 1 Anticipated DC Date: Planned Disposition: Home Primary Insurance: MEDICARE A & B Discharge Planning Comments: CM met with patient at bedside after explaining CM role and obtaining verbal consent. Patient lives at home with his where he is independent with his care and plans to return there upon discharge. Patient feels this would be a safe discharge. CM discussed availability / needs of home health and medical equipment. Patient states that he has home 02 and portable but doesn't use it. Patient denies any discharge needs at this time. Patient states he will have his family drive him home upon discharge. CM will continue to follow and assist as needed with discharge planning / needs. Net Lead Developer: Maria Elena Silvia DCPIA - Discharge Planning Initial Assessment Updated by [id number]: Maria Elena Vega on 07/18/19 2:27 pm * Is the patient Alert and Oriented? Yes * How many steps to enter\exit or inside your home? * PCP [facility] * [facility] * Preadmission Environment Home with Family * ADLs Independent * Other Equipment HOME/ PORTABLE 02 - NOT USING, WALKER -NOT USING * List name and contact numbers for known caregivers / representatives who currently or will assist patient after discharge: JUAN CURRY - [facility] - [phone] * Verbal permission to speak to the caregivers and representatives has been obtained from the patient. Yes * Community resources currently utilized None * Additional services required to return to the preadmission environment? No * Can the patient safely return to the preadmission environment? Yes * Has this patient been hospitalized within the prior 30 days at any hospital? No Coverage Notice Reviewer: [id number] Aleyda Hurtado Notice Issued Date-Time: 07/21/2019 15:47 Notice Type: IM Discharge Notice Notice Delivered To: Patient Relationship to Patient: Body Sander Name: Delivery Method: HAND - Hand Delivered Corrina Days: Prior Verbal Notification: Recipient Understood Notice: Yes Recipient Signature: Yes Med Rec Note Co-signed by Attending: Coverage Notice Comment: Last DP export: 07/21/19 2:56 p Patient Name: ARMANDO CURRY Page 05135 at 0859 All edits/amendments must be made on the electronic document DICTATION DATE: 07/23/19 0858 TALENT DEVELOPMENT CONSULTANT: CYNDI 07/23/19 0858 RPT#: [id number] DC DATE:07/21/19 STATUS: DIS IN [facility] [address] [place] [address] END OF REPORT
== END 2019-07-21 17:43 | disposition home or self-care (01) | DRG 919 ==
LOC: D.ER 01:33 → D.ICU 02:20 → D.M2 02:20
PROVIDERS: Family Medicine; Internal Medicine Interventional Cardiology; Internal Medicine Nephrology; ADMIT Surgery; ATTEND Surgery
PROC: 0W3P8ZZ Control Bleeding in Gastrointestinal Tract, Via Natural or Artificial Opening Endoscopic (ICD-10-PCS; principal; 2019-07-18 07:00)
DX: K91.840 Postprocedural hemorrhage of a digestive system organ or structure following a digestive system procedure (principal); R57.8 Other shock; I21.A1 Myocardial infarction type 2; I50.33 Acute on chronic diastolic (congestive) heart failure; D62 Acute posthemorrhagic anemia; I48.20 Chronic atrial fibrillation, unspecified; N17.9 Acute kidney failure, unspecified; Y83.9 Surgical procedure, unspecified as the cause of abnormal reaction of the patient, or of later complication, without mention of misadventure at the time of the procedure; I25.10 Atherosclerotic heart disease of native coronary artery without angina pectoris; E11.9 Type 2 diabetes mellitus without complications; E78.5 Hyperlipidemia, unspecified; I11.0 Hypertensive heart disease with heart failure; I08.1 Rheumatic disorders of both mitral and tricuspid valves

== ENCOUNTER 2020-11-18 06:29 | Day surgery (SDC) | payer MEDICARE, BC ==
[2020-06-28 10:31] VITALS: BMI 31.5
[~2020-11-18 06:29] MED LIST changes: +FERROUS FUMARA324 MG PO; +FLUTICASONE PRO16 GM NASAL; +IPRATROPIUM BRO30 M1 NASAL; +VIAGRA25 MG PO
[2020-11-18 06:57] LABS: BASOPHILS 0.6 % (0-2); EOSINOPHILS 2.2 % (0-7); HEMATOCRIT 40.2 % (42.0-54.0); HEMOGLOBIN 13.5 g/dL (13.5-17.5); LYMPHOCYTES 7.1 % (15-50); MCH 32.5 pg (26.0-34.0); MCHC 33.5 g/dL (31.0-37.0); MCV 96.9 fL (80.0-100.0); MEAN PLATELET VOLUME 6.4 fL (7.4-10.4); NEUTROPHILS 77.1 % (40-80); RBC 4.15 10x6/uL (4.20-6.10); RDW 15.5 % (11.5-14.5); WBC 9.2 10x3/uL (4.8-10.8)
[2020-11-18 07:00] LABS: PLATELET COUNT 270 10x3/uL (130-400)
[2020-11-18 07:17] LABS: ANION GAP 16.8 mmol/L (8-16); CARBON DIOXIDE 23.3 mmol/L (21.0-32.0); CREATININE - SERUM 2.3 mg/dL (0.6-1.3); POTASSIUM - SERUM 4.1 mmol/L (3.5-5.1)
[2020-11-18] MEDS ORDERED: BUMETANIDE1 MG PO ×2 (07:56→07:58)
[2020-11-18] MEDS ORDERED: PREDNISONE10 MG (08:06)
[2020-11-18] MEDS ORDERED: BAYER CHEWABLE81 MG PO (08:15)
--- NOTE | 2020-11-18 08:20 | NUR ---
0750 EKG DONE WITH ABNORMALITIES NOTED. TAKEN TO Elo LE CRNA, ANESTHESIA PROVIDER. STATES WILL SHOW TO DR. LEE. Hortencia MILAN R.N. 0815 OLD EKG COPIES TO DR. LEE. DR. LEE SPOKE WITH PATIENT. STATES PROCEDURE WILL NEED TO BE CANCELED TODAY RELATED TO AFIB & RATE. Hortencia MILAN R.N.
== END 2020-11-18 08:15 | disposition home or self-care (01) ==
LOC: D.OPS 06:29
PROVIDERS: Anesthesiology; ATTEND Surgery
DX: D12.6 Benign neoplasm of colon, unspecified (principal); E11.9 Type 2 diabetes mellitus without complications; E78.5 Hyperlipidemia, unspecified; I50.30 Unspecified diastolic (congestive) heart failure; Z53.8 Procedure and treatment not carried out for other reasons